=== PATIENT | female | born 1970 | race Caucasian/White ===

== ENCOUNTER 2017-04-10 10:18 | Emergency (ER) | payer BC ==
[2017-04-10 10:32] VITALS: BP 129/78
[2017-04-10] MEDS ORDERED: Acetaminophen/oxyCODONE 325-5 MG Tab PO PRN (10:46)
[2017-04-10] MEDS ORDERED: Ibuprofen 800 MG Tab PO PRN (10:46)
--- NOTE | 2017-04-10 12:28 | EDM.PDOC ---
ED HPI GENERAL MEDICAL PROBLEM - General Chief Complaint: Lower Extremity Injury/Pain Stated Complaint: RIGHT FOOT STEPPED ON BY HORSE Time Seen by Provider: 04/10/17 10:47 Source of Information: Reports: Patient History Limitations: Reports: No Limitations - History of Present Illness INITIAL COMMENTS - FREE TEXT/NARRATIVE: The patient is a 46-year-old female with a chief complaint of right foot pain. Yesterday her right foot was stepped on by a horse. The patient was wearing a boot. She states that she had immediate pain but was able to continue walking using the heel of her foot so did not seek medical attention. Today the pain, bruising, and swelling are a bit worse so she came in for evaluation. She has pain in the right foot in the midfoot area. Worse with ambulation. Better with rest. Pain is moderate. Took ibuprofen with little relief. No ankle pain or additional leg pain. No additional injury. She also states she's been feeling fatigued lately and slightly short of breath. She has a history of Crohn's disease and has chronic anemia for which she gets iron infusions. She had an iron infusion a few weeks ago. She is concerned that the symptoms are how she feels when she is anemic. Has follow-up for this in [facility] but not for 2 weeks from now. Right Feet Pain Score (Numeric/FACES): 6 - Related Data Allergies Allergy/AdvReac Type Severity Reaction Status Date / Time Iodinated Contrast- Oral and Allergy Hives Verified 04/10/17 10:32 IV Dye [Iodinated Contrast Media - IV Dye] iron dextran complex Allergy Anaphylactic Verified 04/10/17 10:32 Shock Sulfa (Sulfonamide Allergy Hives Verified 04/10/17 10:32 Antibiotics) Home Meds: Home Meds Adalimumab [Humira] 20 mg SQ DAILY 05/16/14 [History] ALPRAZolam [Alprazolam] 0.5 mg PO Q4HR PRN 04/10/17 [History] Ibuprofen 800 mg PO TID PRN #30 tablet 04/10/17 [Rx] Losartan [Cozaar] 50 mg PO DAILY 04/10/17 [History] Sertraline [Zoloft] 25 mg PO DAILY 04/10/17 [History] oxyCODONE 5 mg PO Q6H PRN #10 tablet 04/10/17 [Rx] Past Medical History Gastrointestinal History: Reports: Bowel Obstruction, Inflammatory Bowel Disease , Other (See Below) Other Gastrointestinal History: Chrone's disease Psychiatric History: Reports: Anxiety Hematologic History: Reports: Anemia, Iron Deficiency - Past Surgical History GI Surgical History: Reports: Small Bowel Female Surgical History: Reports: Hysterectomy Other Female Surgeries/Procedures: Partial hysterectomy Social & Family History - Family History Family Medical History: Noncontributory - Tobacco Use Smoking Status *Q: Never Smoker Second Hand Smoke Exposure: No - Alcohol Use Days Per Week of Alcohol Use: 0 - Recreational Drug Use Recreational Drug Use: No Review of Systems - Review of Systems Review Of Systems: See Below Constitutional: Reports: Weakness Eyes: Reports: No Symptoms Respiratory: Reports: Shortness of Breath Cardiovascular: Reports: No Symptoms GI/Abdominal: Reports: No Symptoms Musculoskeletal: Reports: Foot Pain ED EXAM, GENERAL - Physical Exam Exam: See Below Exam Limited By: No Limitations General Appearance: Alert, WD/WN, No Apparent Distress Eye Exam: Bilateral Eye: Normal Inspection Ears: Normal External Exam Nose: Normal Inspection Throat/Mouth: Normal Inspection, Normal Voice, No Airway Compromise Head: Atraumatic, Normocephalic Neck: Normal Inspection, Supple Respiratory/Chest: No Respiratory Distress Cardiovascular: Normal Peripheral Pulses Extremities: Other (Right lower extremity: Moderate swelling, tenderness, and ecchymosis of the entire right lateral midfoot area an area of second through fifth metatarsals on the dorsal surface. No crepitus. Toes appear uninjured. Skin intact. Foot warm and well perfused. No ankle swelling or point tenderness , full range of motion of the ankle. No additional extremity abnormality.) Neurological: Alert, Oriented, Normal Cognition Psychiatric: Normal Affect, Normal Mood Skin Exam: Warm, Dry, Intact, Normal Color, No Rash Course - Vital Signs Last Recorded V/S: Last Vital Signs Temp 36.7 C 04/10/17 10:26 Pulse 81 04/10/17 10:26 Resp 16 04/10/17 10:26 BP 129/78 04/10/17 10:26 Pulse Ox 93 L 04/10/17 10:26 - Orders/Labs/Meds Orders: Active Orders 24 hr Category Date Time Status Ankle 2V Rt [CR] Stat Exams 04/10/17 10:45 Ordered Foot 2V Rt [CR] Stat Exams 04/10/17 10:45 Ordered Acetaminophen/oxyCODONE [Percocet 325-5 MG] Med 04/10/17 10:46 Active 1 tab PO ONETIME PRN Ibuprofen [Motrin] Med 04/10/17 10:46 Active 800 mg PO ONETIME PRN Medication Orders Ibuprofen (Motrin) 800 mg PO ONETIME PRN PRN Reason: Pain Oxycodone/Acetaminophen (Percocet 325-5 Mg) 1 tab PO ONETIME PRN PRN Reason: Pain Last Admin: 04/10/17 10:50 Dose: 1 tab Labs: Laboratory Tests 04/10/17 Range/Units 10:52 Hgb 11.4 (11.2-15.7) gm/L Hct 35.6 (34.1-44.9) % Meds: Medications Generic Name Dose Route Start Last Admin Trade Name Freq PRN Reason Stop Dose Admin Ibuprofen 800 mg 04/10/17 10:46 Motrin PO ONETIME PRN Pain Oxycodone/Acetaminophen 1 tab 04/10/17 10:46 04/10/17 10:50 Percocet 325-5 Mg PO 1 tab ONETIME PRN Administration Pain - Re-Assessments/Exams Free Text/Narrative Re-Assessment/Exam: 04/10/17 12:32 X-rays of the right foot and ankle show no definite fracture. However she does have significant swelling and tenderness of the right foot metacarpal so we will place her in a hard soled shoe and provide crutches. I advised her to remain nonweightbearing until she follows up with orthopedics in case of an occult fracture. Meanwhile, her hemoglobin is okay. Discussed this result with her and advised her to follow up with her primary care physician for further workup for her fatigue. She is well appearing and does not endorse constitutional symptoms that would further provoke an emergency workup today. Departure - Departure Time of Disposition: 12:25 Disposition: Home, Self-Care 01 Clinical Impression: Contusion of foot, right Qualifiers: Encounter type: initial encounter Qualified Code(s): S90.31XA - Contusion of right foot, initial encounter - Discharge Information Prescriptions: Ibuprofen 800 mg PO TID PRN #30 tablet PRN Reason: Pain oxyCODONE 5 mg PO Q6H PRN #10 tablet PRN Reason: Pain Referrals: Gail Childs PA-C [Primary Care Provider] - Forms: ED Department Discharge Additional Instructions: 1. Take ibuprofen as prescribed for pain 2. You may take acetaminophen (Tylenol) as needed in addition to ibuprofen. These medications work and are cleared by the body in different ways so it is safe to take both. 3. Take oxycodone only as needed for severe pain 4. Use crutches/hard soled shoe until cleared by orthopedics. Follow up with orthopedics in approximately one week. You may call the provider of your choice tomorrow to schedule. 5. Return to the ED as needed for any new or concerning symptoms - My Orders Last 24 Hours: My Active Orders 04/10/17 10:45 Ankle 2V Rt [CR] Stat Foot 2V Rt [CR] Stat 04/10/17 10:46 Acetaminophen/oxyCODONE [Percocet 325-5 MG] 1 tab PO ONETIME PRN Ibuprofen [Motrin] 800 mg PO ONETIME PRN - Assessment/Plan Last 24 Hours: My Active Orders 04/10/17 10:45 Ankle 2V Rt [CR] Stat Foot 2V Rt [CR] Stat 04/10/17 10:46 Acetaminophen/oxyCODONE [Percocet 325-5 MG] 1 tab PO ONETIME PRN Ibuprofen [Motrin] 800 mg PO ONETIME PRN
--- NOTE | 2017-04-11 10:11 | CR ---
Right foot: Four views of the right foot were obtained. Comparison: No previous foot study. Plantar spur is seen. Mild soft tissue swelling is noted. Joint spaces are preserved. No acute fracture or other abnormality is appreciated. Impression: 1. Plantar spur. Soft tissue swelling. 2. No additional abnormality is identified on right foot study. Diagnostic code #2
--- NOTE | 2017-04-11 10:11 | CR ---
Right ankle: Three views of the right ankle were obtained. Comparison: No previous right ankle study. Ankle mortise is symmetric. Plantar spur again is noted. No acute fracture or other bony abnormality is seen. Impression: 1. Plantar spur. 2. No acute bony abnormality is identified on right ankle study. Diagnostic code #2
== END 2017-04-10 12:40 | disposition home or self-care (01) ==
LOC: JD.ED 10:18
DX: S90.31XA Contusion of right foot, initial encounter (principal); F41.9 Anxiety disorder, unspecified; Z88.2 Allergy status to sulfonamides; Z91.041 Radiographic dye allergy status; Z79.899 Other long term (current) drug therapy; Z90.710 Acquired absence of both cervix and uterus; W55.19XA Other contact with horse, initial encounter
CPT/HCPCS: 36415; 73600; 73620; 85014; 85018; 99284; A9270; 99283

== ENCOUNTER 2017-04-13 18:40 | Emergency (ER) | payer BC ==
[2017-04-13 19:28] VITALS: BP 172/88
--- NOTE | 2017-04-13 19:42 | EDM.PDOC ---
ED HPI GENERAL MEDICAL PROBLEM - General Chief Complaint: Lower Extremity Injury/Pain Stated Complaint: RIGHT CALF PAIN Time Seen by Provider: 04/13/17 19:28 Source of Information: Reports: Patient History Limitations: Reports: No Limitations - History of Present Illness INITIAL COMMENTS - FREE TEXT/NARRATIVE: The patient presents with right calf pain that started today. On Tuesday her right foot was stepped on by a horse and she was seen here. An x-ray of her ankle and foot were done and there was no x-ray. She was given a stiff soled shoe and crutches. Today she developed pain in her right lower leg. She has no chest pain but she does have shortness of breath. She has a history of anemia and she gets iron transfusions. She is scheduled to see her oncologist next Tuesday. She has no history of DVTs or PEs. Onset: Sudden Duration: Hour(s): Location: Reports: Lower Extremity, Right (calf) Quality: Reports: Ache Severity: Moderate Improves with: Reports: None Worsens with: Reports: None Associated Symptoms: Reports: Shortness of Breath. Denies: Chest Pain Right Lower Leg Pain Score (Numeric/FACES): 6 - Related Data Allergies Allergy/AdvReac Type Severity Reaction Status Date / Time Iodinated Contrast- Oral and Allergy Hives Verified 04/13/17 19:24 IV Dye [Iodinated Contrast Media - IV Dye] iron dextran complex Allergy Anaphylactic Verified 04/13/17 19:24 Shock Sulfa (Sulfonamide Allergy Hives Verified 04/13/17 19:24 Antibiotics) Home Meds: Home Meds Adalimumab [Humira] 20 mg SQ DAILY 05/16/14 [History] ALPRAZolam [Alprazolam] 0.5 mg PO Q4HR PRN 04/10/17 [History] Ibuprofen 800 mg PO TID PRN #30 tablet 04/10/17 [Rx] Losartan [Cozaar] 50 mg PO DAILY 04/10/17 [History] Sertraline [Zoloft] 25 mg PO DAILY 04/10/17 [History] oxyCODONE 5 mg PO Q6H PRN #10 tablet 04/10/17 [Rx] Past Medical History Gastrointestinal History: Reports: Bowel Obstruction, Inflammatory Bowel Disease , Other (See Below) Other Gastrointestinal History: Chrone's disease Psychiatric History: Reports: Anxiety Hematologic History: Reports: Anemia, Iron Deficiency - Past Surgical History GI Surgical History: Reports: Small Bowel Female Surgical History: Reports: Hysterectomy Other Female Surgeries/Procedures: Partial hysterectomy Musculoskeletal Surgical History: Reports: Other (See Below) Other Musculoskeletal Surgeries/Procedures:: Herniated disc Social & Family History - Family History Family Medical History: Noncontributory - Tobacco Use Smoking Status *Q: Never Smoker Second Hand Smoke Exposure: No - Alcohol Use Days Per Week of Alcohol Use: 2 Number of Drinks Per Day: 2 Total Drinks Per Week: 4 - Recreational Drug Use Recreational Drug Use: No Review of Systems - Review of Systems Review Of Systems: See Below Constitutional: Reports: No Symptoms Eyes: Reports: No Symptoms Ears: Reports: No Symptoms Nose: Reports: No Symptoms Mouth/Throat: Reports: No Symptoms Respiratory: Reports: Shortness of Breath. Denies: Cough Cardiovascular: Reports: No Symptoms GI/Abdominal: Reports: No Symptoms Genitourinary: Reports: No Symptoms Musculoskeletal: Reports: Other (Right calf pain) ED EXAM, GENERAL - Physical Exam Exam: See Below Exam Limited By: No Limitations General Appearance: Alert, No Apparent Distress Ears: Normal External Exam Nose: Normal Inspection Head: Atraumatic, Normocephalic Neck: Normal Inspection Respiratory/Chest: No Respiratory Distress, Lungs Clear, Normal Breath Sounds Cardiovascular: Regular Rate, Rhythm, No Edema, No Murmur GI/Abdominal: Soft, Non-Tender, No Organomegaly Extremities: Other (Ecchymosis and edema to the right foot. Mild pain upon palpation to the right calf. Her right calf measures 39.5cm and her left calf measures 39cm.) Course - Vital Signs Last Recorded V/S: Last Vital Signs Temp 97.2 F 04/13/17 19:25 Pulse 77 04/13/17 19:25 Resp 16 04/13/17 19:25 BP 172/88 H 04/13/17 19:25 Pulse Ox 100 04/13/17 19:25 - Orders/Labs/Meds Orders: Active Orders 24 hr Category Date Time Status VL Duplex Lwr Ext Veins Ltd Rt [US] Stat Exams 04/13/17 19:36 Taken - Re-Assessments/Exams Free Text/Narrative Re-Assessment/Exam: 04/13/17 19:45 I ordered an US of her right leg to look for DVT. 04/13/17 20:54 The US was negative for DVT. I will discharge her home. Departure - Departure Time of Disposition: 20:55 Disposition: Home, Self-Care 01 Condition: Good Clinical Impression: Right calf pain - Discharge Information Referrals: Gail Childs PA-C [Primary Care Provider] - Forms: ED Department Discharge Additional Instructions: Continue with the tylenol or motrin for pain. Follow up with your doctors as scheduled. Please return if you have any more problems. - My Orders Last 24 Hours: My Active Orders 04/13/17 19:36 VL Duplex Lwr Ext Veins Ltd Rt [US] Stat - Assessment/Plan Last 24 Hours: My Active Orders 04/13/17 19:36 VL Duplex Lwr Ext Veins Ltd Rt [US] Stat
--- NOTE | 2017-04-13 21:05 | US ---
Right lower extremity deep venous ultrasound: Duplex and color flow imaging was obtained of the right common femoral, proximal greater saphenous, superficial femoral, popliteal, posterior tibial and peroneal veins. Left common femoral vein was also evaluated. Findings: Normal phasic flow, augmentation and compression is seen. 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 Impression: 1. No evidence of deep venous thrombosis within the right lower extremity or within the left common femoral vein. Diagnostic code #1
== END 2017-04-13 21:14 | disposition home or self-care (01) ==
LOC: JD.ED 18:40
DX: S90.31XA Contusion of right foot, initial encounter (principal); F41.9 Anxiety disorder, unspecified; Z86.2 Personal history of diseases of the blood and blood-forming organs and certain disorders involving the immune mechanism; Z90.711 Acquired absence of uterus with remaining cervical stump; Z98.890 Other specified postprocedural states; Z79.899 Other long term (current) drug therapy; Z91.041 Radiographic dye allergy status; Z88.2 Allergy status to sulfonamides; W55.12XA Struck by horse, initial encounter
CPT/HCPCS: 93971-26-RT; 93971-RT; 99282; 99283-25

== ENCOUNTER 2017-09-04 14:23 | Emergency (ER) | payer BC ==
[2017-09-04 14:36] VITALS: BP 147/93
[2017-09-04] MEDS ORDERED: HYDROmorphone 0.5 MG/0.5 ML Syringe IVPUSH ONE ×2 (14:53→16:54)
[2017-09-04] MEDS ORDERED: Ketorolac 30 MG/ML SDV IVPUSH ONE (14:53)
[2017-09-04] MEDS ORDERED: cefTRIAXone 2 GM in Sodium Chloride 0.9% 100 ML IV ONE (14:53)
[2017-09-04] MEDS ORDERED: Sodium Chloride 0.9% 10 ML Syringe FLUSH PRN (14:53)
--- NOTE | 2017-09-04 14:57 | EDM.PDOC ---
ED HPI GENERAL MEDICAL PROBLEM - General Chief Complaint: Skin Complaint Stated Complaint: SWELLING UNDER LEFT EYE Time Seen by Provider: 09/04/17 14:36 Source of Information: Reports: Patient History Limitations: Reports: No Limitations - History of Present Illness INITIAL COMMENTS - FREE TEXT/NARRATIVE: 46 year old female presents for evaluation and treatment of pain, erythema and swelling to the inferior left eye. Patient reports she first developed a pimple to the left lateral zygomatic process on Tuesday or this week. She reports the area has steadily worsened. She now has significant pain, erythema and swelling to the left zygomatic process and extends to the inferior eye. She reports a severe, constant, throbbing pain. She reports there is an open area that is draining fluid and pus surrounded by a tender, hard area. She reports associated headaches, left ear pain, left sided sinus pressure and pain with EOMs. She denies any fevers, nausea or vomiting. She took an oxycodone earlier today with little symptom relief She is not a diabetic. No history of MRSA. Location: Reports: Face Left Face Pain Score (Numeric/FACES): 10 - Related Data Allergies Allergy/AdvReac Type Severity Reaction Status Date / Time Iodinated Contrast- Oral and Allergy Hives Verified 09/04/17 14:31 IV Dye [Iodinated Contrast Media - IV Dye] iron dextran complex Allergy Anaphylactic Verified 09/04/17 14:31 Shock Sulfa (Sulfonamide Allergy Hives Verified 09/04/17 14:31 Antibiotics) Home Meds: Home Meds Adalimumab [Humira] 40 mg SQ ASDIRECTED 05/16/14 [History] ALPRAZolam [Alprazolam] 0.5 mg PO Q4HR PRN 04/10/17 [History] Ibuprofen 800 mg PO TID PRN #30 tablet 04/10/17 [Rx] Losartan [Cozaar] 50 mg PO DAILY 04/10/17 [History] Sertraline [Zoloft] 25 mg PO DAILY 04/10/17 [History] oxyCODONE 5 mg PO Q6H PRN #10 tablet 04/10/17 [Rx] Hydrocodone/Acetaminophen [Hydrocodon-Acetaminophen 5-325] 1 tab PO Q6H PRN [History] Past Medical History Gastrointestinal History: Reports: Bowel Obstruction, Inflammatory Bowel Disease , Other (See Below) Other Gastrointestinal History: Chrone's disease Psychiatric History: Reports: Anxiety Hematologic History: Reports: Anemia, Iron Deficiency - Past Surgical History GI Surgical History: Reports: Small Bowel Female Surgical History: Reports: Hysterectomy Other Female Surgeries/Procedures: Partial hysterectomy Musculoskeletal Surgical History: Reports: Other (See Below) Other Musculoskeletal Surgeries/Procedures:: Herniated disc Social & Family History - Family History Family Medical History: Noncontributory - Tobacco Use Smoking Status *Q: Never Smoker Second Hand Smoke Exposure: No - Alcohol Use Days Per Week of Alcohol Use: 2 Number of Drinks Per Day: 2 Total Drinks Per Week: 4 - Recreational Drug Use Recreational Drug Use: No ED ROS GENERAL - Review of Systems Review Of Systems: See Below Constitutional: Denies: Fever HEENT: Reports: Ear Pain (right), Sinus Problem (left side), Other (swelling, erythema and pain to the left lateral zygomatic process extending to the lower left eye) GI/Abdominal: Denies: Nausea, Vomiting Skin: Reports: Erythema (swollen, erythematous, tender area to the left cheek and below the left eye ), Wound (draining pustle) Neurological: Reports: Headache ED EXAM, SKIN/RASH Exam: See Below Exam Limited By: No Limitations General Appearance: Alert, WD/WN, No Apparent Distress Eye Exam: Left Eye: Periorbital Changes (inferior left eye erythema and swelling ), Bilateral Eye: EOMI (reports pain with EOM testing; greatest pain to the left eye wiht left lateral gaze), Normal Inspection, PERRL Ears: Normal External Exam, Normal Canal, Hearing Grossly Normal, Normal TMs Nose: Normal Inspection Throat/Mouth: Normal Inspection, Normal Lips, Normal Voice, No Airway Compromise Head: Sinus Tenderness (left maxillary sinuses) Neck: Normal Inspection Respiratory/Chest: No Respiratory Distress, Lungs Clear, Normal Breath Sounds Cardiovascular: Normal Peripheral Pulses, Regular Rate, Rhythm, No Murmur Neurological: Alert, Oriented, Normal Cognition Psychiatric: Normal Affect, Normal Mood Skin: Warm, Dry, Erythema, Increased Warmth, Wound/Incision (approximately 1cm in diameter open area draining serous fluid surrounded by a golf ball sized indurated area; swelling and erythema appreciated to the left zygomatic process to the left inferior orbit) Location, Skin: Face Characteristics: Erythematous. No: Necrotic Associated features: Warmth, Tenderness, Swelling, Induration, Inflammation, Weeping Course - Vital Signs Last Recorded V/S: Last Vital Signs Temp 36.6 C 09/04/17 14:33 Pulse 80 09/04/17 14:33 Resp BP 147/93 H 09/04/17 14:33 Pulse Ox 97 09/04/17 14:33 - Orders/Labs/Meds Labs: Laboratory Tests 09/04/17 09/04/17 Range/Units 15:20 15:20 WBC 8.10 (3.98-10.04) K/mm3 RBC 4.61 (3.98-5.22) M/mm3 Hgb 11.7 (11.2-15.7) gm/L Hct 36.8 (34.1-44.9) % MCV 79.8 (79.4-94.8) fl MCH 25.4 L (25.6-32.2) pg MCHC 31.8 L (32.2-35.5) g/dl RDW Std Deviation 46.3 (36.4-46.3) fL Plt Count 393 H (182-369) K/mm3 MPV 8.2 L (9.4-12.3) fl Neut % (Auto) 68.2 (34.0-71.1) % Lymph % (Auto) 17.4 L (19.3-51.7) % Cedar % (Auto) 9.8 (4.7-12.5) % Eos % (Auto) 4.3 (0.7-5.8) Baso % (Auto) 0.1 (0.1-1.2) % Neut # (Auto) 5.52 (1.56-6.13) K/mm3 Lymph # (Auto) 1.41 (1.18-3.74) K/mm3 Cedar # (Auto) 0.79 H (0.24-0.36) K/mm3 Eos # (Auto) 0.35 (0.04-0.36) K/mm3 Baso # (Auto) 0.01 (0.01-0.08) K/mm3 C-Reactive Protein 1.7 H* (<1.0) mg/dL Meds: Medications Discontinued Medications Generic Name Dose Route Start Last Admin Trade Name Freq PRN Reason Stop Dose Admin Doxycycline Hyclate 100 mg 09/04/17 16:54 09/04/17 17:05 Vibramycin PO 09/04/17 16:55 100 mg ONETIME ONE Administration Hydromorphone HCl 0.5 mg 09/04/17 14:53 09/04/17 15:26 Dilaudid IVPUSH 09/04/17 14:54 0.5 mg ONETIME ONE Administration Hydromorphone HCl 0.5 mg 09/04/17 16:54 09/04/17 17:04 Dilaudid IVPUSH 09/04/17 16:55 0.5 mg ONETIME ONE Administration Ceftriaxone Sodium 2 gm/ 100 mls @ 200 mls/hr 09/04/17 14:53 09/04/17 15:31 Sodium Chloride IV 09/04/17 15:22 200 mls/hr ONETIME ONE Administration Ketorolac Tromethamine 30 mg 09/04/17 14:53 09/04/17 15:28 Toradol IVPUSH 09/04/17 14:54 30 mg ONETIME ONE Administration Sodium Chloride 10 ml 09/04/17 14:53 09/04/17 15:32 Saline Flush FLUSH 10 ml ASDIRECTED PRN Administration Keep Vein Open - Radiology Interpretation Free Text/Narrative:: CT of the facial bones without contrast (no contrast given due to allergy) impression per [facility]: 1. left facial and periorbital soft tissue swelling. 2. No acute osseous abnormality. - Re-Assessments/Exams Free Text/Narrative Re-Assessment/Exam: 09/04/17 16:56 Given the periorbital changes, pain with EOM and headaches, the decision was made to CT to rule out an orbital cellulitis. Unfortunately allergy to contrast limited the study. I reviewed the labs and CT results patient. She is complaining of the pain is coming back. Additional 0.5 mg IV Dilaudid ordered. I'll give her doxycycline here in the ER tonight. She has received rocephin IV. Prescriptions for doxycycline and Percocet given. Discharge instructions as documented. Departure - Departure Time of Disposition: 16:57 Disposition: Home, Self-Care 01 Condition: Fair Clinical Impression: Cellulitis - Discharge Information Instructions: Cellulitis, Adult, [id number] Referrals: Gail Childs PA-C [Primary Care Provider] - Forms: ED Department Discharge Additional Instructions: Prescription for doxycycline 1 tab twice a day for 10 days Perception for Percocet 1-2 tabs every 6 hours as needed for pain. prescriptions given through [facility] you were given medication in the ER that can affect your ability to drive and operate machinery. Do not drive or operate machinery within 12 hours of taking perception narcotic pain medication. take the doxycycline as prescribed. 1 tab twice a day. may start a prescription tomorrow as your first dose was gien here in the ER tonight. Ibuprofen 600 mg every 6 hours. This will help with the pain and the inflammation. For pain not relieved by ibuprofen may take Percocet 1-2 tabs every 6 hours as needed for pain. Percocet can be habit-forming, I recommend you take as few of these as needed to control your pain. Do not drive or operate machinery within 12 hours of taking Percocet. Follow up with Gail Childs in 7-10 days for recheck of your symptoms. Notify your GI doctor that you are on antibiotics for cellulitis to see if this will interfere with your colonoscopy. Warm compresses to the area 4-6 times a day for 10-15 minutes. Please return to the ER if your symptoms change or worsen.
[2017-09-04] MEDS ORDERED: Doxycycline 100 MG Cap PO ONE (16:54)
--- NOTE | 2017-09-06 11:01 | CT ---
CT maxillofacial Technique: Multiple axial sections were obtained from below the mandible superiorly through the sinuses. Intravenous contrast was not utilized. Reconstructed coronal and sagittal images were obtained. Comparison: No prior facial study. Findings: Mild edema or soft tissue swelling is seen within the left cheek and left periorbital region. Right and left globes are symmetric. No adenopathy is seen. Sinuses are clear. No air-fluid levels are seen within the sinuses. No acute bony abnormality is identified. Impression: 1. Mild edema or soft tissue swelling within the left cheek and left periorbital region. 2. No additional abnormality seen on CT study of the maxillofacial region. Diagnostic code #2 I agree with preliminary report issued by [facility] ([facility] report finalized on 09/04/17, 50 3 PM Central Time)
== END 2017-09-04 17:35 | disposition home or self-care (01) ==
LOC: JD.ED 14:23
DX: H05.012 Cellulitis of left orbit (principal); Z88.8 Allergy status to other drugs, medicaments and biological substances; Z88.2 Allergy status to sulfonamides; Z91.041 Radiographic dye allergy status; Z79.899 Other long term (current) drug therapy
CPT/HCPCS: 36415; 70486; 85025; 86140; 96365; 96375; 96376; 99284; A9270; J0696; J1170; J1885; J7030; J7050

== ENCOUNTER 2019-01-27 23:14 | Emergency (ER) | payer OTHER ==
[2019-01-27 23:35] VITALS: BP 143/90
[2019-01-27] MEDS ORDERED: Sodium Chloride 0.9% 1,000 ML IV SCH (23:45)
[2019-01-27] MEDS ORDERED: HYDROmorphone 1 MG/ML Syringe IVPUSH ONE (23:52)
[2019-01-27] MEDS ORDERED: Ondansetron 4 MG/2 ML SDV IVPUSH ONE (23:52)
--- NOTE | 2019-01-27 23:56 | EDM.PDOC ---
ED HPI GENERAL MEDICAL PROBLEM - General Chief Complaint: Abdominal Pain Stated Complaint: ABDOMINAL PAIN Time Seen by Provider: 01/27/19 23:24 Source of Information: Reports: Patient History Limitations: Reports: No Limitations - History of Present Illness INITIAL COMMENTS - FREE TEXT/NARRATIVE: This is a 48-year-old female. April 2018 she had most of her colon removed other than 5 inches that is not connected to anything now due to Crohn' s disease. She has an ostomy that is connected directly to the small bowel. She states this morning she awoke with some mild symptoms of abdominal discomfort and maybe the feeling of some distention but she drank some tea and fluids and it seemed to get better and then she ate this evening around 10 PM she started having increasing symptoms of abdominal pain some vomiting and she feels like she is becoming distended. She was having output from her ostomy all day today and was pretty normal and that when she emptied it around 10:00 this night she' s had no more output. She has not been around anybody else who has been sick with nausea and vomiting or abdominal pain. She does have a history in the past small bowel obstructions. She states she has been chilling since the symptoms started. No problems with urination. Abdomen Pain Score (Numeric/FACES): 10 - Related Data Allergies Allergy/AdvReac Type Severity Reaction Status Date / Time Iodinated Contrast- Oral and Allergy Hives Verified 01/27/19 23:35 IV Dye [Iodinated Contrast Media - IV Dye] iron dextran complex Allergy Anaphylactic Verified 01/27/19 23:35 Shock Sulfa (Sulfonamide Allergy Hives Verified 01/27/19 23:35 Antibiotics) Home Meds: Home Meds Adalimumab [Humira] 40 mg SQ ASDIRECTED 05/16/14 [History] ALPRAZolam [Alprazolam] 0.5 mg PO Q4HR PRN 04/10/17 [History] Ibuprofen 800 mg PO TID PRN #30 tablet 04/10/17 [Rx] Losartan [Cozaar] 50 mg PO DAILY 04/10/17 [History] Sertraline [Zoloft] 25 mg PO DAILY 04/10/17 [History] oxyCODONE 5 mg PO Q6H PRN #10 tablet 04/10/17 [Rx] Hydrocodone/Acetaminophen [Hydrocodon-Acetaminophen 5-325] 1 tab PO Q6H PRN [History] Past Medical History Gastrointestinal History: Reports: Bowel Obstruction, Inflammatory Bowel Disease , Other (See Below) Other Gastrointestinal History: Chrone's disease Psychiatric History: Reports: Anxiety Hematologic History: Reports: Anemia, Iron Deficiency - Past Surgical History GI Surgical History: Reports: Appendectomy, Small Bowel, Other (See Below) Other GI Surgeries/Procedures: ileostomy Female Surgical History: Reports: Hysterectomy Other Female Surgeries/Procedures: Partial hysterectomy Musculoskeletal Surgical History: Reports: Other (See Below) Other Musculoskeletal Surgeries/Procedures:: Herniated disc Social & Family History - Family History Family Medical History: Noncontributory - Tobacco Use Smoking Status *Q: Never Smoker Second Hand Smoke Exposure: No - Caffeine Use Caffeine Use: Reports: None - Recreational Drug Use Recreational Drug Use: No ED ROS GENERAL - Review of Systems Review Of Systems: See Below Constitutional: Reports: Chills. Denies: Fever HEENT: Reports: No Symptoms Respiratory: Reports: No Symptoms Cardiovascular: Reports: No Symptoms Endocrine: Reports: No Symptoms GI/Abdominal: Reports: Abdominal Pain, Nausea, Vomiting. Denies: Constipation, Diarrhea : Reports: No Symptoms Musculoskeletal: Reports: No Symptoms Skin: Reports: No Symptoms Neurological: Reports: No Symptoms Psychiatric: Reports: No Symptoms Hematologic/Lymphatic: Reports: No Symptoms ED EXAM, GI/ABD - Physical Exam Exam: See Below Exam Limited By: No Limitations General Appearance: Alert, WD/WN, No Apparent Distress Eyes: Bilateral: Normal Appearance Ears: Normal External Exam Nose: Normal Inspection Throat/Mouth: Normal Inspection, Normal Lips, Normal Voice, No Airway Compromise Head: Normocephalic Neck: Supple Respiratory/Chest: No Respiratory Distress, Lungs Clear, Normal Breath Sounds Cardiovascular: Regular Rate, Rhythm, No Murmur GI/Abdominal Exam: Soft, Other (She has generalized soreness on palpation of her abdomen, I do not see obvious distention of her abdomen, bowel sounds are quiet, the ostomy site appears to be clean without infection in the ostomy bag is empty) Back Exam: Full Range of Motion Extremities: Normal Inspection, Normal Range of Motion Neurological: Alert, Oriented Psychiatric: Normal Affect, Normal Mood Skin Exam: Warm, Dry Course - Vital Signs Last Recorded V/S: Last Vital Signs Temp 97.9 F 01/27/19 23:32 Pulse 88 01/27/19 23:32 Resp 16 01/27/19 23:32 BP 143/90 H 01/27/19 23:32 Pulse Ox 96 01/27/19 23:32 - Orders/Labs/Meds Orders: Active Orders 24 hr Category Date Time Status Abdomen Pelvis wo Cont [CT] Stat Exams 01/27/19 23:59 Taken Sodium Chloride 0.9% [Normal Saline] 1,000 ml Med 01/27/19 23:45 Active IV ASDIRECTED Medication Orders Sodium Chloride (Normal Saline) 1,000 mls @ 1,000 mls/hr IV ASDIRECTED ROXANNA Last Admin: 01/28/19 00:02 Dose: 1,000 mls/hr Labs: Laboratory Tests 01/28/19 01/28/19 Range/Units 00:00 00:00 WBC 9.43 (3.98-10.04) K/mm3 RBC 5.05 (3.98-5.22) M/mm3 Hgb 15.0 (11.2-15.7) gm/L Hct 43.2 (34.1-44.9) % MCV 85.5 (79.4-94.8) fl MCH 29.7 (25.6-32.2) pg MCHC 34.7 (32.2-35.5) g/dl RDW Std Deviation 42.0 (36.4-46.3) fL Plt Count 230 (182-369) K/mm3 MPV 8.6 L (9.4-12.3) fl Neut % (Auto) 73.4 H (34.0-71.1) % Lymph % (Auto) 17.1 L (19.3-51.7) % [place] % (Auto) 7.2 (4.7-12.5) % Eos % (Auto) 2.0 (0.7-5.8) Baso % (Auto) 0.1 (0.1-1.2) % Neut # (Auto) 6.92 H (1.56-6.13) K/mm3 Lymph # (Auto) 1.61 (1.18-3.74) K/mm3 [place] # (Auto) 0.68 H (0.24-0.36) K/mm3 Eos # (Auto) 0.19 (0.04-0.36) K/mm3 Baso # (Auto) 0.01 (0.01-0.08) K/mm3 Sodium 140 (136-145) mEq/L Potassium 3.5 (3.5-5.1) mEq/L Chloride 102 (98-107) mEq/L Carbon Dioxide 26 (21-32) mEq/L Anion Gap 15.5 H (5-15) BUN 19 H (7-18) mg/dL Creatinine 0.9 (0.55-1.02) mg/dL Est Cr Clr Drug Dosing 71.56 mL/min Estimated GFR (MDRD) > 60 (>60) mL/min BUN/Creatinine Ratio 21.1 H (14-18) Glucose 107 H (74-106) mg/dL Calcium 8.9 (8.5-10.1) mg/dL Total Bilirubin 0.7 (0.2-1.0) mg/dL AST 41 H (15-37) U/L ALT 79 H (14-59) U/L Alkaline Phosphatase 112 (46-116) U/L Total Protein 7.7 (6.4-8.2) g/dl Albumin 3.7 (3.4-5.0) g/dl Globulin 4.0 gm/dL Albumin/Globulin Ratio 0.9 L (1-2) Lipase 538 H (73-393) U/L Meds: Medications Generic Name Dose Route Start Last Admin Trade Name Freq PRN Reason Stop Dose Admin Sodium Chloride 1,000 mls @ 1,000 mls/hr 01/27/19 23:45 01/28/19 00:02 Normal Saline IV 1,000 mls/hr ASDIRECTED ROXANNA Administration Discontinued Medications Generic Name Dose Route Start Last Admin Trade Name Freq PRN Reason Stop Dose Admin Hydromorphone HCl 0.5 mg 01/27/19 23:52 01/28/19 00:04 Dilaudid IVPUSH 01/27/19 23:53 0.5 mg ONETIME ONE Administration Hydromorphone HCl 0.5 mg 01/28/19 00:59 01/28/19 01:02 Dilaudid IVPUSH 01/28/19 01:00 0.5 mg ONETIME ONE Administration Ondansetron HCl 4 mg 01/27/19 23:52 01/28/19 00:03 Zofran IVPUSH 01/27/19 23:53 4 mg ONETIME ONE Administration - Radiology Interpretation Free Text/Narrative:: CT scan shows a gallbladder distention with multiple gallstones the pancreas showed no ductal dilatation however rest of the CT scan was essentially normal other than her previous postop changes. There was no bowel obstruction. - Re-Assessments/Exams Free Text/Narrative Re-Assessment/Exam: 01/28/19 01:38 I spoke to the patient regarding her CT scan results and the gallbladder distention and multiple gallstones with her slightly elevated liver enzymes and lipase. I indicated she would need to follow-up with her family doctor on Tuesday for referral to a surgeon to have her gallbladder removed. In the meantime she needs to stay on easy to digest foods with no oil grease or fried foods or meats. Patient states she understands. She knows that if the symptoms worsen she is to return to the ER. Departure - Departure Time of Disposition: 01:39 Disposition: Home, Self-Care 01 Condition: Fair Clinical Impression: Elevated liver enzymes, Elevated lipase Cholelithiasis Qualifiers: Cholelithiasis location: gallbladder Cholecystitis presence: without cholecystitis Biliary obstruction: without biliary obstruction Qualified Code(s) : K80.20 - Calculus of gallbladder without cholecystitis without obstruction - Discharge Information *PRESCRIPTION DRUG MONITORING PROGRAM REVIEWED*: No *COPY OF PRESCRIPTION DRUG MONITORING REPORT IN PATIENT JOHN: No Instructions: Cholelithiasis Referrals: Gail Childs PA-C [Primary Care Provider] - Forms: ED Department Discharge Additional Instructions: Stay on liquids and easy to digest foods with no oily, greasy or fried foods or meats, follow-up with your family doctor this coming week and call her on Tuesday for an appointment to be referred to a surgeon for gallbladder evaluation and possible removal, if your symptoms worsen with increasing pain, nausea and vomiting or fever greater than 101, return to the ER - My Orders Last 24 Hours: My Active Orders 01/27/19 23:45 Sodium Chloride 0.9% [Normal Saline] 1,000 ml IV ASDIRECTED 01/27/19 23:59 Abdomen Pelvis wo Cont [CT] Stat - Assessment/Plan Last 24 Hours: My Active Orders 01/27/19 23:45 Sodium Chloride 0.9% [Normal Saline] 1,000 ml IV ASDIRECTED 01/27/19 23:59 Abdomen Pelvis wo Cont [CT] Stat
[2019-01-28] MEDS ORDERED: HYDROmorphone 0.5 MG/0.5 ML Syringe IVPUSH ONE (00:59)
--- NOTE | 2019-01-28 11:15 | CT ---
CT abdomen and pelvis Technique: Multiple axial sections were obtained from above the dome of the diaphragm inferiorly through the pubic symphysis. Intravenous and oral contrast was not utilized. Comparison: Prior CT abdomen and pelvis exam of 12/26/15. Findings: Small portion of the visualized lung bases are clear. Noncontrast appearance of the liver and spleen appears within normal limits. Adrenal glands show no nodule. Gallbladder is somewhat distended and contains a small calcified gallstone. No gallbladder wall thickening is seen on this study. Adrenal glands show no nodule. Kidneys show no hydronephrosis. Cyst is noted within the upper left kidney containing peripheral calcifications which is stable from prior CT exam and therefore is incidental. Pancreas appears within normal limits. Aorta shows no aneurysm. No retroperitoneal adenopathy or mesenteric abnormalities are seen. Interval colectomy is noted. Ostomy is seen within the right lower abdomen. Small fluid collection is seen anterior to the sacrum measuring about 1.8 cm. This is most likely due to small and incidental hematoma/seroma from previous surgery. Bone window settings were reviewed which show disc space narrowing at L5-S1 with vacuum phenomena. Degenerative apophyseal change is seen within the L4-L5 and L5-S1 levels. Impression: 1. Dilated gallbladder containing small calcified gallstone. 2. Interval colectomy from prior study with ostomy noted within the right lower abdomen. 3. Small fluid collection anterior to the sacrum within the pelvis which is believed to represent incidental hematoma/seroma from previous surgery. 4. Other incidental findings. Nothing acute is identified. Diagnostic code #2 I agree with preliminary report from [facility], finalized on 01/28/19, 2:31 AM Central Time
== END 2019-01-28 01:58 | disposition home or self-care (01) ==
LOC: JD.ED 23:14
DX: K80.20 Calculus of gallbladder without cholecystitis without obstruction (principal); R74.8 Abnormal levels of other serum enzymes; R79.89 Other specified abnormal findings of blood chemistry; D50.9 Iron deficiency anemia, unspecified; Z91.041 Radiographic dye allergy status; Z79.899 Other long term (current) drug therapy
CPT/HCPCS: 36415; 74176; 80053; 83690; 85025; 96361; 96374; 96375; 96376; 99284; J1170; J2405; J7040

== ENCOUNTER 2019-01-31 08:40 | Day surgery (SDC) | payer OTHER ==
[~2019-01-31 08:40] MED LIST: Dexamethasone 4 MG/ML SDV ONE; Lidocaine 1%/Sod Bicarbonate in NS 8.4% 1 ML Syringe IDERM PRN; Midazolam 1 MG/ML 2 ML SDV ONE; Ondansetron 4 MG/2 ML SDV ONE; Propofol 200 MG/20 ML SDV ONE; Rocuronium 50 MG/5 ML Vial ONE; Sodium Chloride 0.9% 10 ML Syringe FLUSH PRN; fentaNYL 250 MCG/5 ML SDV ONE
[2019-01-31] MEDS: Lactated Ringers 1,000 ML IV SCH ×2 (09:00→13:39)
[2019-01-31] MEDS ORDERED: cefOXitin 2 GM in Premix Bag 1 BAG IV ONE (09:19)
--- NOTE | 2019-01-31 09:20 | PCM.PREANE ---
Preanesthetic Assessment - Anesthesia/Transfusion/Family Hx Anesthesia History: Prior Anesthesia Without Reaction Family History of Anesthesia Reaction: No Transfusion History: No Prior Transfusion(s) Intubation History: Unknown - Review of Systems General: No Symptoms, Fatigue Pulmonary: No Symptoms (ETOH: rarely), Cough Cardiovascular: No Symptoms (History of hypertension) Gastrointestinal: No Symptoms (History of Chrohns disease-history of colectomy) , Abdominal Pain (rate: 7/10), Decreased Appetite, Nausea Neurological: No Symptoms Other: Reports: Depression, Anxiety - Physical Assessment NPO Status Date: 01/30/19 NPO Status Time: 21:00 Pulse: 70 O2 Sat by Pulse Oximetry: 96 Respiratory Rate: 16 Blood Pressure: 121/79 Temperature: 36.2 C Vital Signs: Last Vital Signs Temp 36.2 C 01/31/19 08:45 Pulse 70 01/31/19 08:45 Resp 16 01/31/19 08:45 BP 121/79 01/31/19 08:45 Pulse Ox 96 01/31/19 08:45 Height: 1.68 m Weight: 102.058 kg ASA Class: 2 Mental Status: Alert & Oriented x3 Airway Class: Mallampati = 2 Dentition: Reports: Normal Dentition, Caries Thyro-Mental Finger Breadths: 3 Mouth Opening Finger Breadths: 3 ROM/Head Extension: Full Lungs: Clear to Auscultation, Normal Respiratory Effort Cardiovascular: Regular Rate, Regular Rhythm, No Murmurs - Lab Values: All labs reviewed and noted and within acceptable ranges to proceed with scheduled procedure. Elevated liver enzymes noted. - Imaging/EKG Impressions: EKG: SR rate=66, RSR' in V1 or V2, probably normal variant, ST elevation, probably normal early repol pattern - Allergies Allergies/Adverse Reactions: Allergies Allergy/AdvReac Type Severity Reaction Status Date / Time Iodinated Contrast- Oral and Allergy Hives Verified 01/30/19 12:34 IV Dye [Iodinated Contrast Media - IV Dye] iron dextran complex Allergy Anaphylactic Verified 01/30/19 12:34 Shock Sulfa (Sulfonamide Allergy Hives Verified 01/30/19 12:34 Antibiotics) - Anesthesia Plan Pre-Op Medication Ordered: None - Acknowledgements Anesthesia Type Planned: General Anesthesia Pt an Appropriate Candidate for the Planned Anesthesia: Yes Alternatives and Risks of Anesthesia Discussed w Pt/Guardian: Yes Pt/Guardian Understands and Agrees with Anesthesia Plan: Yes PreAnesthesia Questionnaire HEENT History: Reports: Other (See Below) Other HEENT History: pharyngitis, sinusitis, thrush, wears glasses Cardiovascular History: Reports: Hypertension, Other (See Below) Other Cardiovascular History: chest pain Respiratory History: Reports: Bronchitis, Recurrent, Other (See Below) Other Respiratory History: pulmonary nodule Gastrointestinal History: Reports: Bowel Obstruction, Inflammatory Bowel Disease , Other (See Below) Other Gastrointestinal History: Chrohns disease, colitis, abdominal wall pain, abdominal wall mass Genitourinary History: Reports: None CHOKE REAMER History: Reports: None Musculoskeletal History: Reports: Other (See Below) Other Musculoskeletal History: wrist ganlion cyst, joint pain Neurological History: Reports: None Psychiatric History: Reports: Anxiety Endocrine/Metabolic History: Reports: None Hematologic History: Reports: Anemia, Iron Deficiency Immunologic History: Reports: None Oncologic (Cancer) History: Reports: None Dermatologic History: Reports: Cellulitis, Other (See Below) Other Dermatologic History: rash, furnuncle to cheek - Past Surgical History Head Surgeries/Procedures: Reports: None Cardiovascular Surgical History: Reports: None Respiratory Surgical History: Reports: None GI Surgical History: Reports: Appendectomy, Small Bowel, Other (See Below) Other GI Surgeries/Procedures: ileostomy, abdominal colectomy Female Surgical History: Reports: Hysterectomy Other Female Surgeries/Procedures: Partial hysterectomy Endocrine Surgical History: Reports: None Neurological Surgical History: Reports: Other (See Below) Other Neurological Surgeries/Procedures: low back pain Musculoskeletal Surgical History: Reports: Other (See Below) Other Musculoskeletal Surgeries/Procedures:: Herniated disc Oncologic Surgical History: Reports: None - SUBSTANCE USE Smoking Status *Q: Never Smoker Recreational Drug Use History: No - HOME MEDS Home Medications: Home Meds Adalimumab [Humira] 40 mg SQ MG 05/16/14 [History] ALPRAZolam [Alprazolam] 0.5 mg PO BID PRN 04/10/17 [History] Losartan [Cozaar] 50 mg PO DAILY 04/10/17 [History] Loperamide [Imodium] 2 mg PO QID PRN 01/30/19 [History] Sertraline [Zoloft] 50 mg PO DAILY 01/30/19 [History] - CURRENT (IN HOUSE) MEDS Current Meds: Current Medications Lactated Ringer's (Ringers, Lactated) 1,000 mls @ 125 mls/hr IV ASDIRECTED ROXANNA Stop: 01/31/19 23:00 Lidocaine/Sodium Bicarbonate (Buffered Lidocaine 1% In Ns 8.4%) 0.25 ml IDERM ONETIME PRN PRN Reason: Prior to IV Start Stop: 01/31/19 18:00 Sodium Chloride (Saline Flush) 10 ml FLUSH ASDIRECTED PRN PRN Reason: Keep Vein Open Stop: 01/31/19 18:00 Discontinued Medications Dexamethasone (Dexamethasone) Confirm Administered Dose 4 mg .ROUTE .STK-MED ONE Stop: 01/31/19 08:38 Fentanyl (Sublimaze) Confirm Administered Dose 250 mcg .ROUTE .STK-MED ONE Stop: 01/31/19 08:38 Midazolam HCl (Versed 1 Mg/Ml) Confirm Administered Dose 2 mg .ROUTE .STK-MED ONE Stop: 01/31/19 08:38 Ondansetron HCl (Zofran) Confirm Administered Dose 4 mg .ROUTE .STK-MED ONE Stop: 01/31/19 08:38 Propofol (Diprivan 20 Ml) Confirm Administered Dose 200 mg .ROUTE .STK-MED ONE Stop: 01/31/19 08:38 Rocuronium [place] (Zemuron) Confirm Administered Dose 50 mg .ROUTE .STK-MED ONE Stop: 01/31/19 08:38
[2019-01-31] MEDS ORDERED: Bupivacaine 0.5% 30 ML SDV ONE ×2 (10:11→14:05)
[2019-01-31] MEDS ORDERED: LORazepam 2 MG/ML SDV IVPUSH ONE (11:45)
[2019-01-31] MEDS ORDERED: Ondansetron 4 MG/2 ML SDV ONE (14:28)
[2019-01-31] MEDS ORDERED: Midazolam 1 MG/ML 2 ML SDV ONE (14:28)
[2019-01-31] MEDS ORDERED: Lactated Ringers 2,000 ML ONE (14:28)
[2019-01-31] MEDS ORDERED: fentaNYL 250 MCG/5 ML SDV ONE (14:28)
[2019-01-31] MEDS ORDERED: Propofol 200 MG/20 ML SDV ONE (14:28)
[2019-01-31] MEDS ORDERED: Rocuronium 50 MG/5 ML Vial ONE (14:28)
[2019-01-31] MEDS ORDERED: Lidocaine 1% 4 ML ONE (14:28)
[2019-01-31] MEDS ORDERED: Dexamethasone 4 MG/ML 5 ML MDV ONE (15:34)
[2019-01-31] MEDS ORDERED: HYDROmorphone 0.5 MG/0.5 ML Syringe ONE (15:35)
[2019-01-31] MEDS ORDERED: fentaNYL 100 MCG/2 ML SDV IVPUSH PRN (15:37)
[2019-01-31] MEDS ORDERED: diphenhydrAMINE 50 MG/ML SDV IVPUSH PRN (15:37)
[2019-01-31] MEDS ORDERED: Ondansetron 4 MG/2 ML SDV IVPUSH PRN (15:37)
[2019-01-31] MEDS ORDERED: Neostigmine Methylsulfate 1 MG/ML 5 ML Syringe ONE (15:47)
[2019-01-31] MEDS ORDERED: Ketorolac 30 MG/ML SDV ONE (15:57)
[2019-01-31] MEDS ORDERED: fentaNYL 100 MCG/2 ML SDV ONE (15:59)
--- NOTE | 2019-01-31 16:18 | PCM.POSTAN ---
POST ANESTHESIA ASSESSMENT - MENTAL STATUS Mental Status: Alert, Oriented - VITAL SIGNS Pulse Rate: 82 SaO2: 96 Resp Rate: 8 Blood Pressure: 124/70 Temperature: 36.4 C - RESPIRATORY Respiratory Status: Respiratory Rate WNL, Airway Patent, O2 Saturation Stable, Supplemental Oxygen - CARDIOVASCULAR CV Status: Pulse Rate WNL, Blood Pressure Stable - GASTROINTESTINAL GI Status: No Symptoms - PAIN Pain Score: 0 - POST OP HYDRATION Hydration Status: Adequate & Stable
[2019-01-31] MEDS: HYDROmorphone 0.5 MG/0.5 ML Syringe IVPUSH PRN ×2 (16:20→16:39)
[2019-01-31] MEDS ORDERED: Ibuprofen 800 MG Tab PO PRN (17:35)
[2019-01-31] MEDS ORDERED: Acetaminophen 325 MG Tab PO PRN (17:37)
[2019-01-31 19:54] VITALS: BP 111/72
--- NOTE | 2019-01-31 22:43 | OR ---
DATE OF OPERATION: 01/31/2019 SURGEON: Pete Holland MD PREOPERATIVE DIAGNOSIS: Calculous cholecystitis. POSTOPERATIVE DIAGNOSIS: Calculous cholecystitis. OPERATION PERFORMED: Laparoscopic cholecystectomy. FINDINGS: Massively distended gallbladder with a stone. She had quite a lot of inflammation around the infundibulum consistent with chronic cholecystitis. There were no injuries to her ileostomy. ESTIMATED BLOOD LOSS: Less than 5 mL. PATHOLOGY: Gallbladder and contents. COMPLICATIONS: None. ANESTHESIA: General with endotracheal intubation. FINDINGS: There was a small amount of room to work in the right upper quadrant. I made great efforts to avoid interacting in any way with her ileostomy just inferior to my operative field. She had quite a lot of surgical adhesions as expected from her multiple previous surgeries as well as her total abdominal colectomy, but I was able to get ample visualization of the right upper quadrant with minimal amount of room. INDICATIONS: Kim is a 48-year-old female with a chronic history of Crohn disease, specifically Crohn colitis. She has had multiple surgical operations in the past including a total abdominal colectomy. She has rectal stump. She had symptoms which she ascribed to her Crohn disease recently. She was sent to me after the visit to the ED demonstrated a stone in her gallbladder associated with a very large distended gallbladder. The patient was examined and found to have positive Savage sign in my office, at which time, she also appeared to have at least a suggestion of a biliary obstruction. I repeated her labs today, which showed an increase in her bilirubin up to 1.4, and AST and ALT were also elevated. Actually considered canceling the case because it turned out she has IV contrast allergy, in addition it sounds like we do not have a basket to retrieve the stone from the common duct. I spoke with [facility], and he suggested an MRCP as opposed to transfer for ERCP. The MRCP was done today and thankfully it showed no evidence of common duct stone. We decided to proceed. Because of her contrast allergy, I was extremely hesitant to give her contrast for common duct exploration. The patient agreed to have a laparoscopic cholecystectomy with possibly further surgery including clearing of her duct in the event that it was a common duct stone that was not identified on the MRCP. She was fully informed of the major risks, benefits, and alternatives including an open operation due to the extremely hostile abdomen as was expected given her multiple previous operations. She gave informed consent. DESCRIPTION OF PROCEDURE: Kim was brought back to the operating room and placed in a supine position on the operating table. She was given general anesthesia. De Dios catheter was inserted. The ileostomy appliance was removed and a Telfa dressing was applied to the ileostomy and a Tegaderm was applied in the ileostomy sequestering it from the operative field. I then prepped in the Tegaderm into the operative field and covered the entire abdomen with an Ioban dressing. At this point, the abdominal insufflation was undertaken to a pressure of 15 mmHg with CO2 gas with a Veress needle insertion in the left upper quadrant. There was no evidence for restriction. An optical 5 mm port was passed in the anterior axillary line in the right upper quadrant along the costal margin. I visualized the tissue planes as the port passed into the peritoneum. There was no contact to underlying bowel. I managed to weave the camera transversely across the falciform ligament and across multiple surgical adhesions until I identified the Veress needle up in the air in the left upper quadrant. There was no contact to underlying bowel. The Veress was only into the peritoneal cavity approximately 1 cm. This was removed. The gas was switched to existing port. Two additional 5 mm ports were passed under direct laparoscopic visualization, 1 in the midclavicular line, and 1 in the epigastrium just to the right of the falciform ligament. I avoided the umbilicus and advanced the 12 mm port just superior to that where I could see that there were dense adhesions along the midline. During the entire course of the port placement, I was extremely vigilant in avoiding injury to the ileum as it passed into the ileostomy. As noted before, there was a small amount of room within which to operate in, and that window was utilized to its maximum to create ample visualization. I grasped the gallbladder. It was extremely distended, full of bile, but I was able to grasp it and retract it cranially within the liver in continuity. I grasped the infundibulum. The infundibulum had some dense chronic adhesions. I used a Shoshana dissector to skeletonize both the cystic duct and cystic artery. Both these structures were clipped and transected in the usual fashion after confirming the critical view of safety. At this point, I was able to retract the gallbladder away from the common duct and a hook cautery was utilized to take down the embryonic attachment of the liver to the gallbladder. The gallbladder was finally removed from its attachment and placed in an EndoCatch bag. It was kept temporarily within the peritoneal cavity while I inspected the right upper quadrant for bleeding and bile staining, there was none. I could see that the clips were still in place. No irrigation was undertaken as there was no essentially no blood loss and no bile staining during the entire procedure. At this point, the gallbladder was removed along with a 12 mm port site. A 0 Vicryl stitch was passed using a Constantino-Naldo passer under direct laparoscopic visualization completely obliterating the fascial defect from the 12 mm port site. I once again inspected the gallbladder fossa finding the clips to be still in place and there was no bile staining or bleeding. All the instruments were removed. The ports were opened to desufflate the gas and then finally the ports were removed. 4-0 Monocryl was used to close the skin. Dermabond was applied for a sterile barrier. The drapes were removed and a new ileostomy appliance was fitted specifically to her ileostomy. She had no complications and tolerated the procedure well. She was awakened from anesthesia and moved to Recovery in stable condition. PINO /[id number]
--- NOTE | 2019-02-01 02:26 | PCM48HPAN ---
Post Anesthesia Note - EVALUATION WITHIN 48HRS OF ANESTHETIC Vital Signs in Normal Range: Yes Patient Participated in Evaluation: Yes Respiratory Function Stable: Yes Airway Patent: Yes Cardiovascular Function Stable: Yes Hydration Status Stable: Yes Pain Control Satisfactory: Yes Nausea and Vomiting Control Satisfactory: Yes Mental Status Recovered: Yes
--- NOTE | 2019-02-01 10:34 | MR ---
MRI abdomen (without contrast) Technique: Various sequences were obtained in axial and coronal planes. MRCP was also performed. Findings: Filling defect noted within the gallbladder compatible with gallstone. Gallstone measures approximately 7.5 mm in size. Additional filling defect is seen within the common hepatic duct slightly distal to the bifurcation of the right and left intrahepatic ducts. This finding measures approximately 3-4 mm in size. No intrahepatic biliary duct dilatation is seen. No additional filling defects seen within the CHD or CBD. Cyst noted within the left kidney measuring 3.2 cm in size. No cyst seen within the liver. Impression: 1. 7.5 mm gallstone within the gallbladder. 3-4 mm stone within the proximal CHD. No biliary duct dilatation is seen. 2. Incidental left renal cyst. Diagnostic code #3
== END 2019-01-31 18:40 | disposition home or self-care (01) ==
LOC: JD.SDS 08:40
PROVIDERS: ATTEND Surgery
DX: K80.10 Calculus of gallbladder with chronic cholecystitis without obstruction (principal); I10 Essential (primary) hypertension; F41.9 Anxiety disorder, unspecified; F32.9 Major depressive disorder, single episode, unspecified; D64.9 Anemia, unspecified; Z90.49 Acquired absence of other specified parts of digestive tract; Z88.2 Allergy status to sulfonamides; Z88.8 Allergy status to other drugs, medicaments and biological substances; Z91.041 Radiographic dye allergy status; Z93.2 Ileostomy status; Z79.899 Other long term (current) drug therapy
CPT/HCPCS: 36415; 47562; 74181; 80053; 93005; J1100; J1170; J1885; J2001; J2060; J2250; J2405; J2704; J2710; J3010; J3490; J7120; 00790

== ENCOUNTER 2019-03-23 20:15 | Emergency (ER) | payer OTHER ==
[2019-03-23 20:41] VITALS: BP 86/69
--- NOTE | 2019-03-23 21:03 | EDM.PDOC ---
ED HPI GENERAL MEDICAL PROBLEM - General Chief Complaint: Neurological Problem Stated Complaint: weakness Time Seen by Provider: 03/23/19 21:02 - History of Present Illness INITIAL COMMENTS - FREE TEXT/NARRATIVE: 48-year-old female presents emergency room with lightheadedness and dizziness worse with change of position This is been going on over the last week the patient's been fairly active. Patient has a colostomy because of Crohn's disease. Patient's been drinking fluids but perhaps not enough and the weather has been getting warmer. She has follow-up coming up with her user interface engineer. Patient is not any chest pain chest pressure breathing difficulties or shortness of breath really no nausea vomiting she's had a lot of loose stools out of her ostomy. Treatments BACTERIOLOGIST MEDICAL: Reports: Other (see below) Other Treatments BACTERIOLOGIST MEDICAL: fluids 108 ounces Lower Leg Pain Score (Numeric/FACES): 6 - Related Data Allergies Allergy/AdvReac Type Severity Reaction Status Date / Time Iodinated Contrast- Oral and Allergy Hives Verified 01/30/19 12:34 IV Dye [Iodinated Contrast Media - IV Dye] iron dextran complex Allergy Anaphylactic Verified 01/30/19 12:34 Shock Sulfa (Sulfonamide Allergy Hives Verified 01/30/19 12:34 Antibiotics) Home Meds: Home Meds Adalimumab [Humira] 40 mg SQ MG 05/16/14 [History] ALPRAZolam [Alprazolam] 0.5 mg PO BID PRN 04/10/17 [History] Losartan [Cozaar] 50 mg PO DAILY 04/10/17 [History] Loperamide [Imodium] 2 mg PO QID PRN 01/30/19 [History] Sertraline [Zoloft] 50 mg PO DAILY 01/30/19 [History] Past Medical History HEENT History: Reports: Other (See Below) Other HEENT History: pharyngitis, sinusitis, thrush, wears glasses Cardiovascular History: Reports: Hypertension, Other (See Below) Other Cardiovascular History: chest pain Respiratory History: Reports: Bronchitis, Recurrent, Other (See Below) Other Respiratory History: pulmonary nodule Gastrointestinal History: Reports: Bowel Obstruction, Inflammatory Bowel Disease , Other (See Below) Other Gastrointestinal History: Chrohns disease, colitis, abdominal wall pain, abdominal wall mass Genitourinary History: Reports: None DISTRIBUTION COORDINATOR History: Reports: None Musculoskeletal History: Reports: Other (See Below) Other Musculoskeletal History: wrist ganlion cyst, joint pain Neurological History: Reports: None Psychiatric History: Reports: Anxiety Endocrine/Metabolic History: Reports: None Hematologic History: Reports: Anemia, Iron Deficiency Immunologic History: Reports: None Oncologic (Cancer) History: Reports: None Dermatologic History: Reports: Cellulitis, Other (See Below) Other Dermatologic History: rash, furnuncle to cheek - Past Surgical History Head Surgeries/Procedures: Reports: None Cardiovascular Surgical History: Reports: None Respiratory Surgical History: Reports: None GI Surgical History: Reports: Appendectomy, Small Bowel, Other (See Below) Other GI Surgeries/Procedures: ileostomy, abdominal colectomy Female Surgical History: Reports: Hysterectomy Other Female Surgeries/Procedures: Partial hysterectomy Endocrine Surgical History: Reports: None Neurological Surgical History: Reports: Other (See Below) Other Neurological Surgeries/Procedures: low back pain Musculoskeletal Surgical History: Reports: Other (See Below) Other Musculoskeletal Surgeries/Procedures:: Herniated disc Oncologic Surgical History: Reports: None Social & Family History - Family History Family Medical History: Noncontributory - Tobacco Use Smoking Status *Q: Never Smoker - Caffeine Use Caffeine Use: Reports: None - Recreational Drug Use Recreational Drug Use: No ED ROS GENERAL - Review of Systems Review Of Systems: Unable To Obtain HEENT: Reports: No Symptoms Respiratory: Reports: No Symptoms Cardiovascular: Reports: No Symptoms Endocrine: Reports: No Symptoms GI/Abdominal: Denies: Abdominal Pain : Reports: No Symptoms Skin: Reports: No Symptoms Neurological: Reports: Dizziness ED EXAM, NEURO - Physical Exam Exam: See Below Exam Limited By: No Limitations General Appearance: Alert, No Apparent Distress, Other (Going from sitting to standing or lying down to sitting does cause her dizziness) Ears: Normal External Exam, Normal Canal, Hearing Grossly Normal, Normal TMs Nose: Normal Inspection, Normal Mucosa, No Blood Throat/Mouth: Normal Inspection, Normal Lips, Normal Teeth, Normal Gums, Normal Oropharynx, Normal Voice, No Airway Compromise Head Exam: Atraumatic, Normocephalic Neck: Normal Inspection, Supple, Non-Tender, Full Range of Motion Respiratory/Chest: No Respiratory Distress, Lungs Clear, Normal Breath Sounds, No Accessory Muscle Use, Chest Non-Tender Cardiovascular: Normal Peripheral Pulses, Regular Rate, Rhythm, No Edema, No Gallop, No JVD, No Murmur, No Rub GI/Abdominal: Normal Bowel Sounds, Soft, Non-Tender, Other (Ostomy has watery stool limit) Neurological: Alert, Normal Mood/Affect Extremities: Normal Inspection, Non-Tender Course - Vital Signs Last Recorded V/S: Last Vital Signs Temp 36.3 C 03/23/19 20:40 Pulse 104 H 03/23/19 20:40 Resp 20 03/23/19 20:40 BP 86/69 L 03/23/19 20:40 Pulse Ox 98 03/23/19 20:40 Orthostatic Blood Pressure [ 86/17 Standing] Orthostatic Blood Pressure [ 105/77 Sitting] Orthostatic Blood Pressure [ 96/76 Supine] - Orders/Labs/Meds Labs: Laboratory Tests 03/23/19 03/23/19 03/23/19 Range/Units 21:46 21:46 21:46 WBC 8.01 (3.98-10.04) K/mm3 RBC 5.74 H (3.98-5.22) M/mm3 Hgb 17.0 H (11.2-15.7) gm/L Hct 47.6 H (34.1-44.9) % MCV 82.9 D (79.4-94.8) fl MCH 29.6 (25.6-32.2) pg MCHC 35.7 H (32.2-35.5) g/dl RDW Std Deviation 42.2 (36.4-46.3) fL Plt Count 335 (182-369) K/mm3 MPV 8.6 L (9.4-12.3) fl Neutrophils % (Manual) 65 H (40-60) % Band Neutrophils % 3 (0-10) % Lymphocytes % (Manual) 19 L (20-40) % Atypical Lymphs % 0 % Monocytes % (Manual) 10 (2-10) % Eosinophils % (Manual) 2 (0.7-5.8) % Basophils % (Manual) 1 (0.1-1.2) Platelet Estimate Adequate Plt Morphology Comment Normal RBC Morph Comment Normal Sodium 132 L (136-145) mEq/L Potassium 4.2 (3.5-5.1) mEq/L Chloride 96 L (98-107) mEq/L Carbon Dioxide 22 (21-32) mEq/L Anion Gap 18.2 H (5-15) BUN 42 H (7-18) mg/dL Creatinine 1.2 H (0.55-1.02) mg/dL Est Cr Clr Drug Dosing 53.67 mL/min Estimated GFR (MDRD) 48 (>60) mL/min BUN/Creatinine Ratio 35.0 H (14-18) Glucose 101 (74-106) mg/dL Calcium 9.4 (8.5-10.1) mg/dL Total Bilirubin 1.3 H (0.2-1.0) mg/dL AST 34 (15-37) U/L ALT 82 H (14-59) U/L Alkaline Phosphatase 147 H (46-116) U/L Total Protein 9.1 H (6.4-8.2) g/dl Albumin 4.8 (3.4-5.0) g/dl Globulin 4.3 gm/dL Albumin/Globulin Ratio 1.1 (1-2) Urine Color Yellow (Yellow) Urine Appearance Clear (Clear) Urine pH 6.0 (5.0-8.0) Ur Specific [place] 1.020 (1.005-1.030) Urine Protein Trace H (Negative) Urine Glucose (UA) Negative (Negative) Urine Ketones Trace H (Negative) Urine Occult Blood 1+ H (Negative) Urine Nitrite Negative (Negative) Urine Bilirubin Negative (Negative) Urine Urobilinogen 0.2 (0.2-1.0) Ur Leukocyte Esterase Negative (Negative) Urine RBC 5-10 H (0-5) /hpf Urine WBC 0-5 (0-5) /hpf Ur Squamous Epith Cells 0-5 (0-5) /hpf Urine Bacteria Not seen (FEW) /hpf Urine Mucus Not seen (FEW) /hpf Meds: Medications Discontinued Medications Generic Name Dose Route Start Last Admin Trade Name Freq PRN Reason Stop Dose Admin Lactated Ringer's 1,000 mls @ 999 mls/hr 03/23/19 21:18 03/23/19 21:51 Ringers, Lactated IV 03/23/19 22:18 999 mls/hr .BOLUS ONE Administration - Re-Assessments/Exams Free Text/Narrative Re-Assessment/Exam: 03/23/19 23:26 Patient received a liter fluid and feels much better she would like to go home at this point she'll continue pushing by mouth fluids at home Departure - Departure Time of Disposition: 23:26 Disposition: Home, Self-Care 01 Clinical Impression: Dehydration - Discharge Information Referrals: Gail Childs PA-C [Primary Care Provider] - Forms: ED Department Discharge Additional Instructions: Return to the emergency room with any questions problems worsening symptoms. Push lots of fluids you should be voiding every hour and a half while you're awake avoid caffeine increase fluids if you can be outside. Follow up with your regular provider in a week and follow-up with user interface engineer as scheduled. You had a few red cells noted in your urine talk this over with your regular provider
[2019-03-23] MEDS ORDERED: Lactated Ringers 1,000 ML IV ONE (21:18)
== END 2019-03-23 23:36 | disposition home or self-care (01) ==
LOC: JD.ED 20:15
DX: E86.0 Dehydration (principal); I10 Essential (primary) hypertension; F41.9 Anxiety disorder, unspecified; D64.9 Anemia, unspecified; Z79.899 Other long term (current) drug therapy; Z91.041 Radiographic dye allergy status; Z88.2 Allergy status to sulfonamides
CPT/HCPCS: 36415; 80053; 81001; 85007; 85027; 96360; 99285; J7120; 99283

== ENCOUNTER 2019-11-23 09:47 | Emergency (ER) | payer OTHER ==
[2019-11-23] MEDS ORDERED: Ondansetron 4 MG/2 ML SDV IVPUSH ONE (10:14)
[2019-11-23] MEDS ORDERED: Sodium Chloride 0.9% 10 ML Syringe FLUSH PRN (10:14)
[2019-11-23] MEDS ORDERED: Sodium Chloride 0.9% 1,000 ML IV SCH (10:15)
--- NOTE | 2019-11-23 11:51 | EDM.PDOC ---
ED HPI GENERAL MEDICAL PROBLEM - General Chief Complaint: Fever Stated Complaint: FLU SX Time Seen by Provider: 11/23/19 09:59 Source of Information: Reports: Patient, Family History Limitations: Reports: No Limitations - History of Present Illness INITIAL COMMENTS - FREE TEXT/NARRATIVE: The patient presents with a fever, chills, cough, body aches and lethargy. This all started yesterday. She has nausea but is keeping water down. She did get the flu shot this year. She has crohn's disease and a colostomy and she is having looser stools. She has no dysuria, chest pain or shortness of breath. Onset: Gradual Duration: Day(s): (Yesterday) Location: Reports: Generalized Quality: Reports: Ache Severity: Moderate Improves with: Reports: None Worsens with: Reports: None Associated Symptoms: Reports: Cough, Fever/Chills, Nausea/Vomiting. Denies: Chest Pain, Headaches, Shortness of Breath Abdomen Pain Score (Numeric/FACES): 8 - Related Data Allergies Allergy/AdvReac Type Severity Reaction Status Date / Time Iodinated Contrast Media Allergy Hives Verified 11/23/19 10:02 [Iodinated Contrast Media - IV Dye] iron dextran complex Allergy Anaphylactic Verified 11/23/19 10:02 Shock Sulfa (Sulfonamide Allergy Hives Verified 11/23/19 10:02 Antibiotics) Home Meds: Home Meds Adalimumab [Humira] 40 mg SQ MG 05/16/14 [History] ALPRAZolam [Alprazolam] 0.5 mg PO BID PRN 04/10/17 [History] Loperamide [Imodium] 2 mg PO QID PRN 01/30/19 [History] Sertraline [Zoloft] 50 mg PO DAILY 01/30/19 [History] Ondansetron [Zofran ODT] 4 mg PO Q6H PRN #20 tab.dis 11/23/19 [Rx] Oseltamivir [Tamiflu] 75 mg PO BID #10 cap 11/23/19 [Rx] Past Medical History HEENT History: Reports: Impaired Vision, Other (See Below) Other HEENT History: pharyngitis, sinusitis, thrush, wears glasses Cardiovascular History: Reports: Hypertension, Other (See Below) Other Cardiovascular History: chest pain Respiratory History: Reports: Bronchitis, Recurrent, Other (See Below) Other Respiratory History: pulmonary nodule Gastrointestinal History: Reports: Bowel Obstruction, Inflammatory Bowel Disease , Other (See Below) Other Gastrointestinal History: Chrohns disease, colitis, abdominal wall pain, abdominal wall mass Genitourinary History: Reports: None 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: Musculoskeletal History: Reports: Other (See Below) Other Musculoskeletal History: wrist ganlion cyst, joint pain Neurological History: Reports: None Psychiatric History: Reports: Anxiety Endocrine/Metabolic History: Reports: None Hematologic History: Reports: Anemia, B12 Deficiency, Iron Deficiency, Other ( See Below) Other Hematologic History: Vit D deficiency Immunologic History: Reports: Other (See Below) Other Immunologic History: Crohn's Oncologic (Cancer) History: Reports: None Dermatologic History: Reports: Cellulitis, Other (See Below) Other Dermatologic History: rash, furnuncle to cheek - Infectious Disease History Infectious Disease History: Reports: Chicken Pox - Past Surgical History Cardiovascular Surgical History: Reports: None Respiratory Surgical History: Reports: None GI Surgical History: Reports: Appendectomy, Small Bowel, Other (See Below) Other GI Surgeries/Procedures: ileostomy, abdominal colectomy Female Surgical History: Reports: Hysterectomy Other Female Surgeries/Procedures: Partial hysterectomy Endocrine Surgical History: Reports: None Neurological Surgical History: Reports: Other (See Below) Other Neurological Surgeries/Procedures: low back pain Musculoskeletal Surgical History: Reports: Other (See Below) Other Musculoskeletal Surgeries/Procedures:: Herniated disc Oncologic Surgical History: Reports: None Social & Family History - Family History Family Medical History: Noncontributory - Tobacco Use Smoking Status *Q: Never Smoker Second Hand Smoke Exposure: No - Caffeine Use Caffeine Use: Reports: None - Recreational Drug Use Recreational Drug Use: No ED ROS GENERAL - Review of Systems Review Of Systems: See Below Constitutional: Reports: Fever, Chills HEENT: Reports: No Symptoms Respiratory: Reports: Cough. Denies: Shortness of Breath Cardiovascular: Reports: No Symptoms Endocrine: Reports: No Symptoms GI/Abdominal: Reports: Nausea. Denies: Abdominal Pain, Vomiting : Reports: No Symptoms Musculoskeletal: Reports: Muscle Stiffness ED EXAM, SEPSIS - Physical Exam Exam: See Below Exam Limited By: No Limitations General Appearance: Alert, No Apparent Distress Ears: Normal External Exam Nose: Normal Inspection Head: Atraumatic, Normocephalic Neck: Normal Inspection Respiratory/Chest: No Respiratory Distress, Lungs Clear, Normal Breath Sounds Cardiovascular: Regular Rate, Rhythm, No Edema, No Murmur GI/Abdominal Exam: Soft, Non-Tender, No Organomegaly, No Mass Extremities: Normal Inspection Neurological: Alert, Oriented, No Motor/Sensory Deficits Course - Vital Signs Last Recorded V/S: Last Vital Signs Temp 100.6 F 11/23/19 09:55 Pulse 106 H 11/23/19 09:55 Resp 20 11/23/19 09:55 BP 156/100 H 11/23/19 09:55 Pulse Ox 99 11/23/19 09:55 - Orders/Labs/Meds Orders: Active Orders 24 hr Category Date Time Status Cardiac Monitoring [RC] . DIRECTED Care 11/23/19 10:14 Active Peripheral IV Care [RC] . DIRECTED Care 11/23/19 10:14 Active Sodium Chloride 0.9% [Normal Saline] 1,000 ml Med 11/23/19 10:15 Active IV .BOLUS Sodium Chloride 0.9% [Saline Flush] Med 11/23/19 10:14 Active 10 ml FLUSH ASDIRECTED PRN ED Antiemetic Medication Reflex [OM.PC] Stat Oth 11/23/19 10:14 Ordered Peripheral IV Insertion Adult [OM.PC] Stat Oth 11/23/19 10:14 Ordered Medication Orders Sodium Chloride (Normal Saline) 1,000 mls @ 1,000 mls/hr IV .BOLUS ROXANNA Last Admin: 11/23/19 10:37 Dose: 1,000 mls/hr Sodium Chloride (Saline Flush) 10 ml FLUSH ASDIRECTED PRN PRN Reason: Keep Vein Open Last Admin: 11/23/19 10:33 Dose: 10 ml Labs: Laboratory Tests 11/23/19 11/23/19 Range/Units 10:51 10:51 WBC 5.64 (3.98-10.04) K/mm3 RBC 5.06 (3.98-5.22) M/mm3 Hgb 14.7 (11.2-15.7) gm/dl Hct 43.0 (34.1-44.9) % MCV 85.0 (79.4-94.8) fl MCH 29.1 (25.6-32.2) pg MCHC 34.2 (32.2-35.5) g/dl RDW Std Deviation 41.1 (36.4-46.3) fL Plt Count 184 D (182-369) K/mm3 MPV 8.5 L (9.4-12.3) fl Neut % (Auto) 76.7 H (34.0-71.1) % Lymph % (Auto) 11.2 L (19.3-51.7) % [place] % (Auto) 9.9 (4.7-12.5) % Eos % (Auto) 1.6 (0.7-5.8) Baso % (Auto) 0.2 (0.1-1.2) % Neut # (Auto) 4.33 (1.56-6.13) K/mm3 Lymph # (Auto) 0.63 L (1.18-3.74) K/mm3 [place] # (Auto) 0.56 H (0.24-0.36) K/mm3 Eos # (Auto) 0.09 (0.04-0.36) K/mm3 Baso # (Auto) 0.01 (0.01-0.08) K/mm3 Sodium 136 (136-145) mEq/L Potassium 3.8 (3.5-5.1) mEq/L Chloride 101 (98-107) mEq/L Carbon Dioxide 29 (21-32) mEq/L Anion Gap 9.8 (5-15) BUN 18 (7-18) mg/dL Creatinine 0.9 (0.55-1.02) mg/dL Est Cr Clr Drug Dosing 70.78 mL/min Estimated GFR (MDRD) > 60 (>60) mL/min BUN/Creatinine Ratio 20.0 H (14-18) Glucose 96 (74-106) mg/dL Calcium 8.8 (8.5-10.1) mg/dL Total Bilirubin 0.8 (0.2-1.0) mg/dL AST 49 H (15-37) U/L ALT 88 H (14-59) U/L Alkaline Phosphatase 120 H (46-116) U/L Total Protein 7.9 (6.4-8.2) g/dl Albumin 3.7 (3.4-5.0) g/dl Globulin 4.2 gm/dL Albumin/Globulin Ratio 0.9 L (1-2) Lipase 213 (73-393) U/L Meds: Medications Generic Name Dose Route Start Last Admin Trade Name Frehank PRN Reason Stop Dose Admin Sodium Chloride 1,000 mls @ 1,000 mls/hr 11/23/19 10:15 11/23/19 10:37 Normal Saline IV 1,000 mls/hr .BOLUS ROXANNA Administration Sodium Chloride 10 ml 11/23/19 10:14 11/23/19 10:33 Saline Flush FLUSH 10 ml ASDIRECTED PRN Administration Keep Vein Open Discontinued Medications Generic Name Dose Route Start Last Admin Trade Name Freq PRN Reason Stop Dose Admin Ondansetron HCl 4 mg 11/23/19 10:14 11/23/19 10:35 Zofran IVPUSH 11/23/19 10:15 4 mg ONETIME ONE Administration - Re-Assessments/Exams Free Text/Narrative Re-Assessment/Exam: 11/23/19 11:50 I ordered an IV NS 1L bolus, zofran 4mg IV, labs and influenza. 11/23/19 11:51 Her CBC looks good. Her AST was elevate at 49 and ALT is 88. Her alk phos is elevated at 120. These have all been elevated before. Her lipase is negative. Her influenza A is positive. I will get her on some tamiflu. Departure - Departure Time of Disposition: 11:55 Disposition: Home, Self-Care 01 Condition: Good Clinical Impression: Influenza A - Discharge Information *PRESCRIPTION DRUG MONITORING PROGRAM REVIEWED*: Not Applicable *COPY OF PRESCRIPTION DRUG MONITORING REPORT IN PATIENT JOHN: Not Applicable Prescriptions: Ondansetron [Zofran ODT] 4 mg PO Q6H PRN #20 tab.dis PRN Reason: Nausea\vomiting Oseltamivir [Tamiflu] 75 mg PO BID #10 cap Referrals: Gail Childs PA-C [Primary Care Provider] - 1 Week Additional Instructions: Drink plenty of fluids. Take zofran every 6 hours as needed for nausea or vomiting. Take the tamiflu 2 times per day for 5 days. Please return if you are worse. Sepsis Event Note - Evaluation Sepsis Screening Result: No Definite Risk - Focused Exam Vital Signs: Vital Signs Temp Pulse Resp BP Pulse Ox 11/23/19 09:55 100.6 F 106 H 20 156/100 H 99 Date Exam was Performed: 11/23/19 Time Exam was Performed: 11:45 - My Orders Last 24 Hours: My Active Orders 11/23/19 10:14 Cardiac Monitoring [RC] . DIRECTED Peripheral IV Care [RC] . DIRECTED Sodium Chloride 0.9% [Saline Flush] 10 ml FLUSH ASDIRECTED PRN ED Antiemetic Medication Reflex [OM.PC] Stat Peripheral IV Insertion Adult [OM.PC] Stat 11/23/19 10:15 Sodium Chloride 0.9% [Normal Saline] 1,000 ml IV .BOLUS - Assessment/Plan Last 24 Hours: My Active Orders 11/23/19 10:14 Cardiac Monitoring [RC] . DIRECTED Peripheral IV Care [RC] . DIRECTED Sodium Chloride 0.9% [Saline Flush] 10 ml FLUSH ASDIRECTED PRN ED Antiemetic Medication Reflex [OM.PC] Stat Peripheral IV Insertion Adult [OM.PC] Stat 11/23/19 10:15 Sodium Chloride 0.9% [Normal Saline] 1,000 ml IV .BOLUS
[2019-11-23] MEDS ORDERED: Sodium Chloride 0.9% 1,000 ML IV ONE (12:04)
[2019-11-23] MEDS ORDERED: Acetaminophen 325 MG Tab PO ONE (12:32)
[2019-11-23 14:18] VITALS: BP 132/83
[2019-11-23 14:20] VITALS: PULSE 90
== END 2019-11-23 13:25 | disposition home or self-care (01) ==
LOC: JD.ED 09:47
DX: J10.1 Influenza due to other identified influenza virus with other respiratory manifestations (principal); I10 Essential (primary) hypertension; F41.9 Anxiety disorder, unspecified; Z91.041 Radiographic dye allergy status; Z91.048 Other nonmedicinal substance allergy status; Z88.2 Allergy status to sulfonamides; Z79.899 Other long term (current) drug therapy; Z90.49 Acquired absence of other specified parts of digestive tract; Z90.710 Acquired absence of both cervix and uterus
CPT/HCPCS: 36415; 80053; 83690; 85025; 87804; 96361; 96374; 99283; A9270; J2405; J7030

== ENCOUNTER 2020-07-21 16:19 | Emergency (ER) | payer OTHER ==
[2020-07-21 17:02] VITALS: BP 133/97; PULSE 117
[2020-07-21] MEDS ORDERED: Aspirin 81 MG Tab.Chew PO ONE (17:21)
[2020-07-21] MEDS ORDERED: Sodium Chloride 0.9% 10 ML Syringe FLUSH PRN ×2 (17:21→18:43)
[2020-07-21] MEDS ORDERED: Sodium Chloride 0.9% 1,000 ML IV SCH (17:30)
[2020-07-21] MEDS ORDERED: methylPREDNISolone Sodium Succinate 125 MG/2 ML SDV IVPUSH ONE (18:29)
[2020-07-21] MEDS ORDERED: diphenhydrAMINE 50 MG/ML SDV IVPUSH ONE (18:30)
[2020-07-21] MEDS ORDERED: Iopamidol 755 Mg/ML 100 ML Bottle IVPUSH ONE (18:43)
[2020-07-21] MEDS ORDERED: Sodium Chloride 0.9% 100 ML IV SCH (18:45)
--- NOTE | 2020-07-21 19:30 | EDM.PDOC ---
ED HPI GENERAL MEDICAL PROBLEM - General Chief Complaint: Respiratory Problem Stated Complaint: DEHYDRATION/HEART RACING Time Seen by Provider: 07/21/20 17:07 Source of Information: Reports: Patient History Limitations: Reports: No Limitations - History of Present Illness INITIAL COMMENTS - FREE TEXT/NARRATIVE: The patient presents with possible dehydration. The patient has a history of Crohn's disease and gets dehydrated easily. She will go for infusions at [facility] weekly. She has some chest tightness and some mild shortness of breath. She has no fever or cough. She does have abdominal pain and some diarrhea. That is under control with immodium. She has no history of heart disease but there is some history of in her family. She does not smoke. She has not been tested for COVID 19. She does not think she has been around anyone with COVID 19. She says her heart has been racing and she has "fog head." Duration: Day(s): Location: Reports: Chest Quality: Reports: Other (tightness) Improves with: Reports: None Worsens with: Reports: None Associated Symptoms: Reports: Chest Pain, Shortness of Breath. Denies: Cough, Fever/Chills, Headaches, Nausea/Vomiting Chest Pain Score (Numeric/FACES): 3 - Related Data Allergies Allergy/AdvReac Type Severity Reaction Status Date / Time Iodinated Contrast Media Allergy Hives Verified 07/21/20 16:53 [Iodinated Contrast Media - IV Dye] iron dextran complex Allergy Anaphylactic Verified 07/21/20 16:53 Shock Sulfa (Sulfonamide Allergy Hives Verified 07/21/20 16:53 Antibiotics) Home Meds: Home Meds Adalimumab [Humira] 40 mg SQ MG 05/16/14 [History] ALPRAZolam [Alprazolam] 0.5 mg PO BID PRN 04/10/17 [History] Loperamide [Imodium] 2 mg PO QID PRN 01/30/19 [History] Vortioxetine Hydrobromide [Trintellix] 10 mg PO DAILY 07/21/20 [History] Past Medical History HEENT History: Reports: Impaired Vision, Other (See Below) Other HEENT History: pharyngitis, sinusitis, thrush, wears glasses Cardiovascular History: Reports: Hypertension, Other (See Below) Other Cardiovascular History: chest pain Respiratory History: Reports: Bronchitis, Recurrent, Other (See Below) Other Respiratory History: pulmonary nodule Gastrointestinal History: Reports: Bowel Obstruction, Inflammatory Bowel Disease, Other (See Below) Other Gastrointestinal History: Chrohns disease, colitis, abdominal wall pain, abdominal wall mass Genitourinary History: Reports: None 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: Musculoskeletal History: Reports: Other (See Below) Other Musculoskeletal History: wrist ganlion cyst, joint pain Neurological History: Reports: None Psychiatric History: Reports: Anxiety Endocrine/Metabolic History: Reports: None Hematologic History: Reports: Anemia, B12 Deficiency, Iron Deficiency, Other (See Below) Other Hematologic History: Vit D deficiency Immunologic History: Reports: Other (See Below) Other Immunologic History: Crohn's Oncologic (Cancer) History: Reports: None Dermatologic History: Reports: Cellulitis, Other (See Below) Other Dermatologic History: rash, furnuncle to cheek - Infectious Disease History Infectious Disease History: Reports: Chicken Pox, Influenza - Past Surgical History Head Surgeries/Procedures: Reports: None Cardiovascular Surgical History: Reports: None Respiratory Surgical History: Reports: None GI Surgical History: Reports: Appendectomy, Small Bowel, Other (See Below) Other GI Surgeries/Procedures: ileostomy, abdominal colectomy Female Surgical History: Reports: Hysterectomy Other Female Surgeries/Procedures: Partial hysterectomy Endocrine Surgical History: Reports: None Neurological Surgical History: Reports: Other (See Below) Other Neurological Surgeries/Procedures: low back pain Musculoskeletal Surgical History: Reports: Other (See Below) Other Musculoskeletal Surgeries/Procedures:: Herniated disc Oncologic Surgical History: Reports: None Social & Family History - Family History Family Medical History: Noncontributory - Tobacco Use Smoking Status *Q: Never Smoker - Caffeine Use Caffeine Use: Reports: None - Recreational Drug Use Recreational Drug Use: No ED ROS GENERAL - Review of Systems Review Of Systems: See Below Constitutional: Reports: No Symptoms HEENT: Reports: No Symptoms Respiratory: Reports: Shortness of Breath Cardiovascular: Reports: Chest Pain Endocrine: Reports: No Symptoms GI/Abdominal: Reports: No Symptoms : Reports: No Symptoms Musculoskeletal: Reports: No Symptoms ED EXAM, GENERAL - Physical Exam Exam: See Below Exam Limited By: No Limitations General Appearance: Alert, No Apparent Distress Ears: Normal External Exam Nose: Normal Inspection Head: Atraumatic, Normocephalic Neck: Normal Inspection Respiratory/Chest: No Respiratory Distress, Lungs Clear, Normal Breath Sounds Cardiovascular: Regular Rate, Rhythm, No Edema, No Murmur GI/Abdominal: Soft, Non-Tender, No Organomegaly, No Mass Back Exam: Normal Inspection Extremities: Normal Inspection EKG INTERPRETATION EKG Date: 07/21/20 Time: 19:35 Rhythm: Other (sinus tachycardia) Rate (Beats/Min): 100 [place]: Normal P-Wave: Present QRS: Normal ST-T: Elevated (anterior leads normal early repol) QT: Normal Course - Vital Signs Last Recorded V/S: Last Vital Signs Temp 97 F 07/21/20 16:56 Pulse 117 H 07/21/20 16:56 Resp 13 07/21/20 16:56 BP 133/97 H 07/21/20 16:56 Pulse Ox 95 07/21/20 16:56 - Orders/Labs/Meds Orders: Active Orders 24 hr Category Date Time Status Cardiac Monitoring [RC] . DIRECTED Care 07/21/20 17:21 Active EKG 12 Lead [EKG Documentation Completion] [RC] STAT Care 07/21/20 17:05 Active Peripheral IV Care [RC] . DIRECTED Care 07/21/20 17:22 Active Ang Chest [CT] Stat Exams 07/21/20 18:17 Taken Chest 1V Frontal [CR] Stat Exams 07/21/20 17:22 Taken CORONAVIRUS COVID-19 PCR PHL Stat Lab 07/21/20 19:45 Received Sodium Chloride 0.9% [Normal Saline] 1,000 ml Med 07/21/20 17:30 Active IV .BOLUS Sodium Chloride 0.9% [Normal Saline] 100 ml Med 07/21/20 18:45 Active IV ASDIRECTED Sodium Chloride 0.9% [Saline Flush] Med 07/21/20 17:21 Active 10 ml FLUSH ASDIRECTED PRN Sodium Chloride 0.9% [Saline Flush] Med 07/21/20 18:43 Active 10 ml FLUSH ONETIME PRN Peripheral IV Insertion Adult [OM.PC] Stat Oth 07/21/20 17:21 Ordered Medication Orders Sodium Chloride (Normal Saline) 1,000 mls @ 1,000 mls/hr IV .BOLUS ROXANNA Last Admin: 07/21/20 17:43 Dose: 1,000 mls/hr Documented by: [email or web address] Sodium Chloride (Normal Saline) 100 mls @ 60 mls/hr IV ASDIRECTED ROXANNA Last Admin: 07/21/20 19:35 Dose: 60 mls/hr Documented by: [email or web address] Sodium Chloride (Saline Flush) 10 ml FLUSH ASDIRECTED PRN PRN Reason: Keep Vein Open Last Admin: 07/21/20 17:43 Dose: 10 ml Documented by: [email or web address] Sodium Chloride (Saline Flush) 10 ml FLUSH ONETIME PRN PRN Reason: Keep Vein Open Last Admin: 07/21/20 19:35 Dose: 10 ml Documented by: [id number] Labs: Laboratory Tests 07/21/20 07/21/20 07/21/20 Range/Units 17:21 17:30 17:30 WBC 11.98 H (3.98-10.04) K/mm3 RBC 5.76 H (3.98-5.22) M/mm3 Hgb 16.8 H (11.2-15.7) gm/dl Hct 48.8 H (34.1-44.9) % MCV 84.7 (79.4-94.8) fl MCH 29.2 (25.6-32.2) pg MCHC 34.4 (32.2-35.5) g/dl RDW Std Deviation 44.8 (36.4-46.3) fL Plt Count 381 H (182-369) K/mm3 MPV 8.3 L (9.4-12.3) fl Neut % (Auto) 77.5 H (34.0-71.1) % Lymph % (Auto) 11.9 L (19.3-51.7) % [place] % (Auto) 8.3 (4.7-12.5) % Eos % (Auto) 1.8 (0.7-5.8) Baso % (Auto) 0.2 (0.1-1.2) % Neut # (Auto) 9.30 H (1.56-6.13) K/mm3 Lymph # (Auto) 1.42 (1.18-3.74) K/mm3 [place] # (Auto) 1.00 H (0.24-0.36) K/mm3 Eos # (Auto) 0.21 (0.04-0.36) K/mm3 Baso # (Auto) 0.02 (0.01-0.08) K/mm3 Manual Slide Review Normal smear PT 10.2 (9.7-11.7) SECONDS INR 0.95 APTT 25 (22-31) SECONDS D-Dimer, Quantitative 2.19 H (0.19-0.50) mg/L Sodium 131 L (136-145) mEq/L Potassium 4.1 (3.5-5.1) mEq/L Chloride 96 L (98-107) mEq/L Carbon Dioxide 19 L (21-32) mEq/L Anion Gap 20.1 H (5-15) BUN 27 H (7-18) mg/dL Creatinine 1.1 H (0.55-1.02) mg/dL Est Cr Clr Drug Dosing 57.91 mL/min Estimated GFR (MDRD) 53 (>60) mL/min BUN/Creatinine Ratio 24.5 H (14-18) Glucose 100 (74-106) mg/dL Lactic Acid (0.4-2.0) mmol/L Calcium 9.6 (8.5-10.1) mg/dL Phosphorus 3.6 (2.6-4.7) mg/dL Magnesium 2.0 (1.8-2.4) mg/dl Ferritin (8-252) ng/ml Total Bilirubin 0.5 (0.2-1.0) mg/dL AST 34 (15-37) U/L ALT 62 H (14-59) U/L Alkaline Phosphatase 194 H (46-116) U/L Lactate Dehydrogenase 186 (81-234) U/L Troponin I < 0.017 (0.00-0.056) ng/mL C-Reactive Protein 1.3 H* (<1.0) mg/dL Total Protein 9.5 H (6.4-8.2) g/dl Albumin 4.3 (3.4-5.0) g/dl Globulin 5.2 gm/dL Albumin/Globulin Ratio 0.8 L (1-2) 07/21/20 07/21/20 Range/Units 17:30 17:40 WBC (3.98-10.04) K/mm3 RBC (3.98-5.22) M/mm3 Hgb (11.2-15.7) gm/dl Hct (34.1-44.9) % MCV (79.4-94.8) fl MCH (25.6-32.2) pg MCHC (32.2-35.5) g/dl RDW Std Deviation (36.4-46.3) fL Plt Count (182-369) K/mm3 MPV (9.4-12.3) fl Neut % (Auto) (34.0-71.1) % Lymph % (Auto) (19.3-51.7) % [place] % (Auto) (4.7-12.5) % Eos % (Auto) (0.7-5.8) Baso % (Auto) (0.1-1.2) % Neut # (Auto) (1.56-6.13) K/mm3 Lymph # (Auto) (1.18-3.74) K/mm3 [place] # (Auto) (0.24-0.36) K/mm3 Eos # (Auto) (0.04-0.36) K/mm3 Baso # (Auto) (0.01-0.08) K/mm3 Manual Slide Review PT (9.7-11.7) SECONDS INR APTT (22-31) SECONDS D-Dimer, Quantitative (0.19-0.50) mg/L Sodium (136-145) mEq/L Potassium (3.5-5.1) mEq/L Chloride (98-107) mEq/L Carbon Dioxide (21-32) mEq/L Anion Gap (5-15) BUN (7-18) mg/dL Creatinine (0.55-1.02) mg/dL Est Cr Clr Drug Dosing mL/min Estimated GFR (MDRD) (>60) mL/min BUN/Creatinine Ratio (14-18) Glucose (74-106) mg/dL Lactic Acid 1.1 (0.4-2.0) mmol/L Calcium (8.5-10.1) mg/dL Phosphorus (2.6-4.7) mg/dL Magnesium (1.8-2.4) mg/dl Ferritin 384 H (8-252) ng/ml Total Bilirubin (0.2-1.0) mg/dL AST (15-37) U/L ALT (14-59) U/L Alkaline Phosphatase (46-116) U/L Lactate Dehydrogenase (81-234) U/L Troponin I (0.00-0.056) ng/mL C-Reactive Protein (<1.0) mg/dL Total Protein (6.4-8.2) g/dl Albumin (3.4-5.0) g/dl Globulin gm/dL Albumin/Globulin Ratio (1-2) Meds: Medications Generic Name Dose Route Start Last Admin Trade Name Ildefonsoq PRN Reason Stop Dose Admin Sodium Chloride 1,000 mls @ 1,000 mls/hr 07/21/20 17:30 07/21/20 17:43 Normal Saline IV 1,000 mls/hr .BOLUS ROXANNA Administration Sodium Chloride 100 mls @ 60 mls/hr 07/21/20 18:45 07/21/20 19:35 Normal Saline IV 60 mls/hr ASDIRECTED ROXANNA Administration Sodium Chloride 10 ml 07/21/20 17:21 07/21/20 17:43 Saline Flush FLUSH 10 ml ASDIRECTED PRN Administration Keep Vein Open Sodium Chloride 10 ml 07/21/20 18:43 07/21/20 19:35 Saline Flush FLUSH 10 ml ONETIME PRN Administration Keep Vein Open Discontinued Medications Generic Name Dose Route Start Last Admin Trade Name Ildefonsoq PRN Reason Stop Dose Admin Aspirin 324 mg 07/21/20 17:21 07/21/20 17:42 Aspirin PO 07/21/20 17:22 324 mg ONETIME ONE Administration Diphenhydramine HCl 50 mg 07/21/20 18:30 07/21/20 18:37 Benadryl IVPUSH 07/21/20 18:31 50 mg ONETIME ONE Administration Iopamidol 100 ml 07/21/20 18:43 07/21/20 19:35 Isovue-370 (76%) IVPUSH 07/21/20 18:44 100 ml ONETIME ONE Administration Methylprednisolone Sodium Succinate 125 mg 07/21/20 18:29 07/21/20 18:47 Solu-Medrol IVPUSH 07/21/20 18:30 125 mg ONETIME ONE Administration - Re-Assessments/Exams Free Text/Narrative Re-Assessment/Exam: 07/21/20 19:35 I ordered an IV NS 1L bolus, EKG, CXR, and labs. I also checked her for COVID 19. Her EKG shows a sinus tachcyardia with some ST elevation in the anterior leads seen on prior EKG. Her Hgb was elevated at 11.98. Her Hgb was elevated at 16.8. Her D-dimer was elevated at 2.19. I ordered a CT angio of her chest. Her Na was low at 131. Her anion gap is elevated at 20.1. Her creatinine is elevated at 1.1. Her ferritin is elevated at 384. Her ALT is elevated at 62. Her troponin is negative. I am waiting for the CT angio of her chest. 07/21/20 20:[address] angio showed no acute pulmonary embolic disease. No acute abnormality within the chest. I will discharge her home. Departure - Departure Time of Disposition: 20:10 Disposition: Home, Self-Care 01 Condition: Good Clinical Impression: Atypical chest pain, Dehydration, Crohn's disease - Discharge Information *PRESCRIPTION DRUG MONITORING PROGRAM REVIEWED*: Not Applicable *COPY OF PRESCRIPTION DRUG MONITORING REPORT IN PATIENT JOHN: Not Applicable Referrals: Gail Childs PA-C [Primary Care Provider] - 1 Week Forms: ED Department Discharge Additional Instructions: Follow up with your provider as scheduled. Please return if you are worse. Sepsis Event Note (ED) - Evaluation Sepsis Screening Result: No Definite Risk - Focused Exam Vital Signs: Vital Signs Temp Pulse Resp BP Pulse Ox 07/21/20 16:56 97 F 117 H 13 133/97 H 95 - My Orders Last 24 Hours: My Active Orders 07/21/20 17:05 EKG 12 Lead [EKG Documentation Completion] [RC] STAT 07/21/20 17:21 Cardiac Monitoring [RC] . DIRECTED Sodium Chloride 0.9% [Saline Flush] 10 ml FLUSH ASDIRECTED PRN Peripheral IV Insertion Adult [OM.PC] Stat 07/21/20 17:22 Peripheral IV Care [RC] . DIRECTED Chest 1V Frontal [CR] Stat 07/21/20 17:30 Sodium Chloride 0.9% [Normal Saline] 1,000 ml IV .BOLUS 07/21/20 18:17 Ang Chest [CT] Stat 07/21/20 18:43 Sodium Chloride 0.9% [Saline Flush] 10 ml FLUSH ONETIME PRN 07/21/20 18:45 Sodium Chloride 0.9% [Normal Saline] 100 ml IV ASDIRECTED 07/21/20 19:45 CORONAVIRUS COVID-19 PCR PHL Stat - Assessment/Plan Last 24 Hours: My Active Orders 07/21/20 17:05 EKG 12 Lead [EKG Documentation Completion] [RC] STAT 07/21/20 17:21 Cardiac Monitoring [RC] . DIRECTED Sodium Chloride 0.9% [Saline Flush] 10 ml FLUSH ASDIRECTED PRN Peripheral IV Insertion Adult [OM.PC] Stat 07/21/20 17:22 Peripheral IV Care [RC] . DIRECTED Chest 1V Frontal [CR] Stat 07/21/20 17:30 Sodium Chloride 0.9% [Normal Saline] 1,000 ml IV .BOLUS 07/21/20 18:17 Ang Chest [CT] Stat 07/21/20 18:43 Sodium Chloride 0.9% [Saline Flush] 10 ml FLUSH ONETIME PRN 07/21/20 18:45 Sodium Chloride 0.9% [Normal Saline] 100 ml IV ASDIRECTED 07/21/20 19:45 CORONAVIRUS COVID-19 PCR PHL Stat
--- NOTE | 2020-08-20 08:48 | CT ---
PROCEDURE INFORMATION: Exam: CT Angiography Chest With Contrast Exam date and time: 07/21/2020 6:54 PM Age: 49 years old Clinical indication: Pain and abnormal findings; Abnormal diagnostic tests; Elevated d-dimer; Chest pain; Type not specified TECHNIQUE: Imaging protocol: Computed tomographic angiography of the chest with intravenous contrast. 3D rendering (Not supervised by radiologist): MIP and/or 3D reconstructed images were created by the technologist. COMPARISON: CT Chest wo Cont 05/26/2016 7:56 AM FINDINGS: Pulmonary arteries: Normal. No pulmonary emboli. Aorta: Unremarkable. No aortic aneurysm. No aortic dissection. Thyroid: Bilateral thyroid nodules, the largest is on the left measuring 9 mm x 12 mm. Given the size and appearance of the lesions, follow-up is not required. Lungs: Unremarkable. No consolidation. No masses. Pleural space: Pleural based nodule in the medial right upper lobe measures 1.1 x 1.5 cm. It has increased in size since the prior study, where it measured 0.5 x 1.2 cm. Heart: Unremarkable. No cardiomegaly. No pericardial effusion. Lymph nodes: Unremarkable. No enlarged lymph nodes. Kidneys and ureters: Cyst in the lateral upper pole cortex of the left kidney measures 2.7 x 2.2 cm. There are peripheral foci of calcification. The appearance is similar to the study performed 05/26/2016. Bones/joints: Unremarkable. No acute fracture. Soft tissues: Unremarkable. IMPRESSION: 1. No evidence for acute pulmonary embolic disease. 2. No acute abnormality within the chest. 3. Pleural based nodule in the medial right upper lobe is has increased in size since 2016, but otherwise demonstrates benign features. This is likely a pleural plaque. If clinically indicated, PET-CT could be performed for further assessment. 4. Stable appearing left renal cyst containing peripheral calcifications, follow-up not required. COMMENTS: 1. Consistent with the [employer]'s Incidental Findings Committee white paper (J Am Kenny Radiol 2015): In patients aged 35 years and older with an incidental thyroid nodule equal to or greater than 1.[address], MRI or extrathyroidal US, further evaluation with dedicated thyroid US is recommended for patients with normal life expectancy and without comorbidities. For smaller nodules without suspicious features, no further evaluation or follow up is recommended. 2. Consistent with the [employer]'s Incidental Findings Committee white paper (J Am Kenny Radiol 2018): Any incidental renal lesion less than 1 cm or classified as too small to characterize, or any incidental cystic renal lesion characterized as simple- appearing, is likely benign. No follow-up imaging is recommended for these lesions per consensus recommendations based on imaging criteria. Thank you for allowing us to participate in the care of your patient. Dictated and Authenticated by: Venkata De La Fuente MD 08/19/2020 8:32 PM Central Time ([place] & [place]) ESTEL[place]
--- NOTE | 2020-08-22 13:18 | CR ---
PROCEDURE INFORMATION: Exam: XR Chest, 1 View Exam date and time: 07/21/2020 5:10 PM Age: 49 years old Clinical indication: Chest pain; Type not specified TECHNIQUE: Imaging protocol: XR of the chest Views: 1 view. COMPARISON: DX Chest 2V 02/07/2017 4:26 PM FINDINGS: Lungs: Unremarkable. No consolidation. Pleural space: Unremarkable. No pleural effusion. No pneumothorax. Heart/Mediastinum: Unremarkable. No cardiomegaly. Bones/joints: Unremarkable. IMPRESSION: No acute findings. Thank you for allowing us to participate in the care of your patient. Dictated and Authenticated by: Ignacio White MD 08/22/2020 1:11 PM Central Time ([place] & [place]) [place]
== END 2020-07-21 20:15 | disposition home or self-care (01) ==
LOC: JD.ED 16:19
DX: E86.0 Dehydration (principal); K50.90 Crohn's disease, unspecified, without complications; R07.89 Other chest pain; I10 Essential (primary) hypertension; Z91.041 Radiographic dye allergy status; Z88.8 Allergy status to other drugs, medicaments and biological substances; Z88.2 Allergy status to sulfonamides; Z79.899 Other long term (current) drug therapy; Z11.59 Encounter for screening for other viral diseases
CPT/HCPCS: 36415; 71045; 71275; 80053; 82728; 83605; 83615; 83735; 84100; 84484; 85025; 85379; 85610; 85730; 86140; 87635; 93005; 96361; 96374; 96375; 99285; A9270; J1200; J2930; J7030; J7050; Q9967; 93010; 99284; U0002

== ENCOUNTER 2023-01-23 22:15 | Emergency (ER) | payer OTHER, BC ==
[2023-01-23 22:29] VITALS: BP 156/96; PULSE 72
[2023-01-23] MEDS ORDERED: Lactated Ringers 1,000 ML IV SCH (22:45)
[2023-01-23] MEDS ORDERED: Ondansetron 4 MG/2 ML SDV IVPUSH ONE ×2 (22:59→23:04)
[2023-01-23] MEDS ORDERED: HYDROmorphone 0.5 MG/0.5 ML Syringe IVPUSH ONE ×2 (22:59→23:44)
[2023-01-24 00:24] LABS: CORONAVIRUS COVID-19 NAA NEGATIVE (NEGATIVE)
[2023-01-24] MEDS ORDERED: HYDROmorphone 0.5 MG/0.5 ML Syringe IVPUSH ONE (02:48)
== END 2023-01-24 03:01 | disposition home or self-care (01) ==
LOC: JD.ED 22:15
DX: K50.90 Crohn's disease, unspecified, without complications (principal); I10 Essential (primary) hypertension; Z91.041 Radiographic dye allergy status; Z88.2 Allergy status to sulfonamides; Z88.8 Allergy status to other drugs, medicaments and biological substances; Z20.822 Contact with and (suspected) exposure to COVID-19
CPT/HCPCS: 0240U; 36415; 80053; 81001; 83605; 83690; 85025; 96361; 96374; 96375; 96376; 99284; J1170; J2405; J7120; 99283

== ENCOUNTER 2023-05-01 11:07 | Emergency (ER) | payer BC, OTHER ==
[2023-05-01 11:18] VITALS: BP 161/97; PULSE 94
[2023-05-01] MEDS ORDERED: Lidocaine 1% 10 ML MDV INJECT ONE (13:05)
== END 2023-05-01 14:38 | disposition home or self-care (01) ==
LOC: JD.ED 11:07
DX: L03.221 Cellulitis of neck (principal); I10 Essential (primary) hypertension; Z88.2 Allergy status to sulfonamides; Z91.041 Radiographic dye allergy status; Z91.048 Other nonmedicinal substance allergy status
CPT/HCPCS: 10060; 99283; J3490

== ENCOUNTER 2023-05-31 09:23 | Day surgery (SDC) | payer BC ==
[2023-05-31] MEDS ORDERED: Sodium Chloride 0.9% 10 ML Syringe FLUSH PRN (10:23)
[2023-05-31] MEDS ORDERED: Lactated Ringers 1,000 ML IV SCH (10:30)
[2023-05-31] MEDS ORDERED: Dexmedetomidine 200 MCG/2 ML SDV ONE (11:00)
[2023-05-31] MEDS ORDERED: ceFAZolin 2 GM Vial ONE (11:00)
[2023-05-31] MEDS ORDERED: fentaNYL 100 MCG/2 ML SDV IVPUSH PRN (11:02)
[2023-05-31] MEDS ORDERED: Ondansetron 4 MG/2 ML SDV IVPUSH PRN (11:02)
[2023-05-31] MEDS ORDERED: Bupivacaine 0.5%/EPINEPHrine 1:200,000 50 ML MDV ONE (11:05)
[2023-05-31] MEDS ORDERED: Lidocaine 1% 2 ML ONE (11:07)
[2023-05-31] MEDS ORDERED: Midazolam 1 MG/ML 2 ML SDV ONE (11:07)
[2023-05-31] MEDS ORDERED: Propofol 200 MG/20 ML SDV ONE ×3 (11:07→11:51)
[2023-05-31] MEDS ORDERED: hydrALAZINE 20 MG/ML SDV ONE (11:31)
[2023-05-31] MEDS ORDERED: fentaNYL 100 MCG/2 ML SDV ONE (11:52)
[2023-05-31 13:26] VITALS: BP 112/74; PULSE 74
[2023-05-31] MEDS ORDERED: Sodium Chloride 0.9% 10 ML Syringe FLUSH SCH (21:00)
== END 2023-05-31 13:12 | disposition home or self-care (01) ==
LOC: JD.SDS 09:23
PROVIDERS: ATTEND Surgery
DX: L72.0 Epidermal cyst (principal); L90.5 Scar conditions and fibrosis of skin; L08.9 Local infection of the skin and subcutaneous tissue, unspecified; F41.9 Anxiety disorder, unspecified; D22.9 Melanocytic nevi, unspecified; K50.90 Crohn's disease, unspecified, without complications; R63.0 Anorexia; E86.0 Dehydration; D64.9 Anemia, unspecified; I10 Essential (primary) hypertension; D51.9 Vitamin B12 deficiency anemia, unspecified; Z90.49 Acquired absence of other specified parts of digestive tract; Z91.041 Radiographic dye allergy status; Z88.2 Allergy status to sulfonamides; Z88.8 Allergy status to other drugs, medicaments and biological substances; Z79.899 Other long term (current) drug therapy; E53.9 Vitamin B deficiency, unspecified; E55.9 Vitamin D deficiency, unspecified; F32.A Depression, unspecified; Z68.38 Body mass index [BMI] 38.0-38.9, adult
CPT/HCPCS: 00300; J0360; J0690; J2250; J2704; J3010; J3490; J7120

== ENCOUNTER 2023-07-15 19:47 | Emergency (ER) | payer OTHER, BC ==
[2023-07-15] MEDS ORDERED: Sodium Chloride 0.9% 10 ML Syringe FLUSH PRN (20:46)
[2023-07-15] MEDS ORDERED: Ondansetron 4 MG/2 ML SDV IVPUSH ONE (20:46)
[2023-07-15] MEDS ORDERED: HYDROmorphone 0.5 MG/0.5 ML Syringe IVPUSH ONE ×2 (20:46→22:02)
[2023-07-15 20:52] LABS: BASOPHILS PERCENT AUTO 0.3 % (0.0-1.0); EOSINOPHILS ABSOLUTE AUTO 0.1 K/mm3 (0.0-0.4); EOSINOPHILS PERCENT AUTO 1.9 % (0.0-6.0); HEMATOCRIT 40.8 % (37.0-47.0); HEMOGLOBIN 14.2 gm/dl (12.0-16.0); IMMATURE GRAN ABSOLUTE AUTO 0.02 K/mm3 (0.00-0.05); IMMATURE GRAN PERCENT AUTO 0.3 % (0.0-0.4); LYMPHOCYTES ABSOLUTE AUTO 1.1 K/mm3 (1.0-4.8); LYMPHOCYTES PERCENT AUTO 14.8 % (24.0-44.0); MEAN CORPUSCULAR HEMOGLOBIN 29.2 pg (28.0-32.0); MEAN CORPUSCULAR HGB CONC 34.8 g/dl (32.0-36.0); MEAN PLATELET VOLUME 8.4 fl (9.4-12.3); MONOCYTES ABSOLUTE AUTO 0.4 K/mm3 (0.0-0.8); MONOCYTES PERCENT AUTO 5.6 % (0.0-8.0); NEUTROPHILS ABSOLUTE AUTO 5.6 K/mm3 (1.8-7.7); NEUTROPHILS PERCENT AUTO 77.1 % (41.0-71.0); PLATELET COUNT,PLT 238 K/mm3 (150-400); RED BLOOD CELL COUNT 4.86 M/mm3 (4.10-5.30); WHITE BLOOD CELL COUNT,WBC 7.31 K/mm3 (3.9-11.3)
[2023-07-15] MEDS ORDERED: Sodium Chloride 0.9% 1,000 ML IV SCH (21:00)
[2023-07-15 21:13] LABS: A/G RATIO 0.9 (1-2); ALBUMIN 3.7 g/dl (3.4-5.0); ALKALINE PHOSPHATASE 169 U/L (46-116); ANION GAP 12.8 (5-15); ASPARTATE AMNIOTRANSFERASE,AST 35 U/L (15-37); BILIRUBIN TOTAL 0.8 mg/dL (0.2-1.0); BLOOD UREA NITROGEN,BUN 10 mg/dL (7-18); BUN/CREATININE RATIO 12.5 (14-18); C-REACTIVE PROTEIN <0.2 mg/dL (<1.0); CARBON DIOXIDE,CO2 24 mEq/L (21-32); CHLORIDE,CL 104 mEq/L (98-107); CREATININE 0.8 mg/dL (0.55-1.02); EST CRCL DRUG DOSING (CG) 77.01 mL/min; ESTIMATED GFR 89 mL/min (>60); GLUCOSE RANDOM 104 mg/dL (70-99); POTASSIUM,K 3.8 mEq/L (3.5-5.1); PROTEIN TOTAL,TP 7.8 g/dl (6.4-8.2); SODIUM,NA 137 mEq/L (136-145)
[2023-07-15] MEDS ORDERED: Naloxone 0.4 MG/ML SDV IVPUSH PRN (22:02)
[2023-07-15] MEDS ORDERED: Acetaminophen 325 MG Tab PO ONE (22:02)
[2023-07-15 22:20] LABS: APPEARANCE,URINE CLEAR (Clear); BILIRUBIN,URINE NEGATIVE (Negative); COLOR,URINE YELLOW (Yellow); GLUCOSE,URINE NEGATIVE (Negative); KETONES,URINE NEGATIVE (Negative); LEUKOCYTE ESTERASE,URINE NEGATIVE (Negative); NITRITE,URINE NEGATIVE (Negative); OCCULT BLOOD,URINE NEGATIVE (Negative); PROTEIN,URINE NEGATIVE (Negative); UROBILINOGEN,URINE 0.2 (0.2-1.0)
[2023-07-15 22:39] LABS: ALANINE AMINOTRANSFERASE,ALT 58 U/L (14-59)
[2023-07-15 23:01] LABS: BACTERIA,URINE FEW /hpf (FEW); MUCUS,URINE FEW /hpf (FEW); RBC,URINE 0-5 /hpf (0-5); WBC,URINE 0-5 /hpf (0-5)
[2023-07-15 23:12] LABS: CORONAVIRUS COVID-19 NAA NEGATIVE (NEGATIVE); INFLUENZA A NAA NEGATIVE (NEGATIVE)
[2023-07-15] MEDS ORDERED: Ketorolac 30 MG/ML SDV IVPUSH ONE (23:22)
[2023-07-16 00:09] VITALS: BP 150/90; PULSE 74
== END 2023-07-16 00:23 | disposition home or self-care (01) ==
LOC: JD.ED 19:47
DX: R51.9 Headache, unspecified (principal); I10 Essential (primary) hypertension; M54.2 Cervicalgia; Z20.822 Contact with and (suspected) exposure to COVID-19; Z79.899 Other long term (current) drug therapy; Z88.2 Allergy status to sulfonamides; Z91.041 Radiographic dye allergy status; Z88.8 Allergy status to other drugs, medicaments and biological substances
CPT/HCPCS: 0240U; 36415; 70450; 80053; 81001; 85025; 86140; 96361; 96374; 96375; 96376; 99284; A9270; J1170; J1885; J2405; J3490; J7030

== ENCOUNTER 2024-07-19 03:38 | Inpatient (IN) | payer BC, OTHER ==
[2024-07-19] MEDS: Metoclopramide 10 MG/2 ML SDV IVPUSH ONE (04:37)
[2024-07-19] MEDS: Sodium Chloride 0.9% 1,000 ML IV SCH (04:37)
[2024-07-19] MEDS: diphenhydrAMINE 50 MG/ML SDV IVPUSH ONE (04:47)
[2024-07-19] MEDS: HYDROmorphone 1 MG/ML Syringe IVPUSH ONE (04:48)
[2024-07-19] MEDS: Acetaminophen 325 MG Tab PO ONE ×2 (04:49→07:54)
[2024-07-19 04:56] LABS: BASOPHILS PERCENT AUTO 0.4 % (0.0-1.0); EOSINOPHILS PERCENT AUTO 0.2 % (0.0-6.0); HEMATOCRIT 41.5 % (37.0-47.0); HEMOGLOBIN 14.1 gm/dl (12.0-16.0); IMMATURE GRAN ABSOLUTE AUTO 0.02 K/mm3 (0.00-0.05); IMMATURE GRAN PERCENT AUTO 0.4 % (0.0-0.4); LYMPHOCYTES ABSOLUTE AUTO 0.5 K/mm3 (1.0-4.8); LYMPHOCYTES PERCENT AUTO 9.3 % (24.0-44.0); MEAN CORPUSCULAR HEMOGLOBIN 29.1 pg (28.0-32.0); MEAN CORPUSCULAR VOLUME 85.6 fl (83.0-99.0); MEAN PLATELET VOLUME 8.8 fl (9.4-12.3); MONOCYTES ABSOLUTE AUTO 0.4 K/mm3 (0.0-0.8); MONOCYTES PERCENT AUTO 7.5 % (0.0-8.0); NEUTROPHILS ABSOLUTE AUTO 4.4 K/mm3 (1.8-7.7); NEUTROPHILS PERCENT AUTO 82.2 % (41.0-71.0); PLATELET COUNT,PLT 190 K/mm3 (150-400); RED BLOOD CELL COUNT 4.85 M/mm3 (4.10-5.30); WHITE BLOOD CELL COUNT,WBC 5.36 K/mm3 (3.9-11.3)
[2024-07-19 05:22] LABS: APPEARANCE,URINE CLEAR (Clear); BILIRUBIN,URINE NEGATIVE (Negative); COLOR,URINE YELLOW (Yellow); GLUCOSE,URINE NEGATIVE (Negative); KETONES,URINE NEGATIVE (Negative); LEUKOCYTE ESTERASE,URINE NEGATIVE (Negative); NITRITE,URINE NEGATIVE (Negative); OCCULT BLOOD,URINE TRACE-LYSED (Negative); PROTEIN,URINE NEGATIVE (Negative); UROBILINOGEN,URINE 0.2 (0.2-1.0)
[2024-07-19 05:29] LABS: LACTIC ACID 1.2 mmol/L (0.4-2.0)
[2024-07-19 05:35] LABS: A/G RATIO 0.9 (1-2); ALBUMIN 3.4 g/dl (3.4-5.0); ANION GAP 14.6 (5-15); BUN/CREATININE RATIO 8.9 (14-18); C-REACTIVE PROTEIN 1.94 mg/dL (<0.30); CALCIUM 8.7 mg/dL (8.5-10.1); CREATININE 0.9 mg/dL (0.55-1.02); EST CRCL DRUG DOSING (CG) 67.67 mL/min; MAGNESIUM 1.3 mg/dL (1.8-2.4); POTASSIUM,K 3.6 mEq/L (3.5-5.1); PROTEIN TOTAL,TP 7.2 g/dl (6.4-8.2)
[2024-07-19 05:54] LABS: CORONAVIRUS COVID-19 NAA NEGATIVE (NEGATIVE); INFLUENZA A NAA NEGATIVE (NEGATIVE); RESPIRATORY SYNCYTIAL VIR NAA NEGATIVE (NEGATIVE)
[2024-07-19 05:59] LABS: BACTERIA,URINE RARE /hpf (FEW); EPITHELIAL CELLS,URINE 0-5 /hpf (0-5); MUCUS,URINE FEW /hpf (FEW); RBC,URINE NOT SEEN /hpf (0-5); WBC,URINE 0-5 /hpf (0-5)
[2024-07-19] MEDS: Magnesium Sulfate/Water Premix 4 GM in Premix Bag 1 BAG IV ONE (06:20)
[2024-07-19] MEDS: HYDROmorphone 0.5 MG/0.5 ML Syringe IVPUSH ONE (07:54)
[2024-07-19] MEDS ORDERED: Non-Formulary Medication 1 Each (Hydrocodone/Acetaminophen 1 EACH Tablet) PO PRN (08:53)
[2024-07-19] MEDS ORDERED: Loperamide 2 MG Cap PO PRN (08:53)
[2024-07-19] MEDS ORDERED: ALPRAZolam 0.5 MG Tab PO PRN (08:53)
[2024-07-19] MEDS ORDERED: CYCLOBENZAPRINE 5 MG PO PRN (08:53)
[2024-07-19] MEDS ORDERED: traMADol 50 MG Tab PO PRN ×2 (08:53→08:59)
[2024-07-19] MEDS ORDERED: Cyclobenzaprine 10 MG Tab PO PRN (08:57)
[2024-07-19] MEDS ORDERED: Sodium Chloride 0.9% 1,000 ML IV SCH (10:15)
[2024-07-19] MEDS: Enoxaparin 40 MG/0.4 ML Syringe SUBCUT SCH (10:47)
[2024-07-19] MEDS: Atropine/Diphenoxylate 0.025-2.5 MG Tab PO SCH (10:48)
[2024-07-19] MEDS: NS + KCl 20mEq/L 1,000 ML IV SCH (10:48)
[2024-07-19] MEDS: Acetaminophen/HYDROcodone 325-5 MG Tab PO PRN (11:38)
[2024-07-19] MEDS: Sodium Phosphate 15 MMOLE in Sodium Chloride 0.9% 250 ML IV ONE (11:59)
[2024-07-19] MEDS: Acetaminophen 325 MG Tab PO PRN (12:31)
[2024-07-19] MEDS: HYDROmorphone 0.5 MG/0.5 ML Syringe IVPUSH PRN (17:21)
[2024-07-19] MEDS ORDERED: Sodium Chloride 0.9% 10 ML Syringe FLUSH PRN (18:06)
[2024-07-19] MEDS: cefTRIAXone 2 GM in Sodium Chloride 0.9% 100 ML IV SCH (20:15)
[2024-07-19] MEDS: VANCOmycin 2 GM/400 ML 2 GM in Premix Bag 1 BAG IV ONE (20:16)
[2024-07-19] MEDS: Ondansetron 4 MG/2 ML SDV IV PRN (21:38)
[2024-07-19] MEDS: Sodium Chloride 0.9% 10 ML Syringe FLUSH SCH (21:43)
[2024-07-19] MEDS: AZATHIOPRINE 50 MG PO SCH (22:14)
[2024-07-19] MEDS: LEFLUNOMIDE 20 MG PO SCH (22:15)
[2024-07-19] MEDS: Ibuprofen 400 MG Tab PO SCH (22:35)
[2024-07-20 06:25] LABS: BASOPHILS PERCENT AUTO 0.2 % (0.0-1.0); HEMATOCRIT 40.5 % (37.0-47.0); HEMOGLOBIN 13.5 gm/dl (12.0-16.0); IMMATURE GRAN ABSOLUTE AUTO 0.03 K/mm3 (0.00-0.05); IMMATURE GRAN PERCENT AUTO 0.7 % (0.0-0.4); LYMPHOCYTES ABSOLUTE AUTO 0.5 K/mm3 (1.0-4.8); LYMPHOCYTES PERCENT AUTO 11.9 % (24.0-44.0); MEAN CORPUSCULAR HEMOGLOBIN 29.3 pg (28.0-32.0); MEAN CORPUSCULAR HGB CONC 33.3 g/dl (32.0-36.0); MONOCYTES ABSOLUTE AUTO 0.4 K/mm3 (0.0-0.8); MONOCYTES PERCENT AUTO 8.1 % (0.0-8.0); NEUTROPHILS ABSOLUTE AUTO 3.5 K/mm3 (1.8-7.7); NEUTROPHILS PERCENT AUTO 79.1 % (41.0-71.0); PLATELET COUNT,PLT 137 K/mm3 (150-400); WHITE BLOOD CELL COUNT,WBC 4.45 K/mm3 (3.9-11.3)
[2024-07-20 07:35] LABS: A/G RATIO 0.8 (1-2); ALBUMIN 2.9 g/dl (3.4-5.0); ANION GAP 14.6 (5-15); BUN/CREATININE RATIO 5.6 (14-18); C-REACTIVE PROTEIN 7.21 mg/dL (<0.30); CALCIUM 8.1 mg/dL (8.5-10.1); CREATININE 0.9 mg/dL (0.55-1.02); EST CRCL DRUG DOSING (CG) 67.67 mL/min; MAGNESIUM 2.1 mg/dL (1.8-2.4); POTASSIUM,K 3.6 mEq/L (3.5-5.1); PROTEIN TOTAL,TP 6.7 g/dl (6.4-8.2)
[2024-07-20] MEDS: VANCOmycin 1.25 GM/250 ML 1.25 GM in Premix Bag 1 BAG IV SCH (08:58)
[2024-07-20] MEDS: Ibuprofen 400 MG Tab PO PRN (12:50)
[2024-07-20] MEDS: ceFAZolin 2 GM in Sodium Chloride 0.9% 50 ML IV SCH (16:23)
[2024-07-20] MEDS: Lidocaine 1% with EPINEPHrine 1:100,000 20 ML MDV INJECT ONE (16:27)
[2024-07-21 05:37] LABS: BASOPHILS PERCENT AUTO 0.2 % (0.0-1.0); EOSINOPHILS ABSOLUTE AUTO 0.2 K/mm3 (0.0-0.4); EOSINOPHILS PERCENT AUTO 5.8 % (0.0-6.0); HEMATOCRIT 39.6 % (37.0-47.0); HEMOGLOBIN 13.1 gm/dl (12.0-16.0); IMMATURE GRAN ABSOLUTE AUTO 0.02 K/mm3 (0.00-0.05); IMMATURE GRAN PERCENT AUTO 0.5 % (0.0-0.4); LYMPHOCYTES ABSOLUTE AUTO 0.9 K/mm3 (1.0-4.8); LYMPHOCYTES PERCENT AUTO 22.4 % (24.0-44.0); MEAN CORPUSCULAR HEMOGLOBIN 29.2 pg (28.0-32.0); MEAN CORPUSCULAR HGB CONC 33.1 g/dl (32.0-36.0); MEAN CORPUSCULAR VOLUME 88.4 fl (83.0-99.0); MONOCYTES ABSOLUTE AUTO 0.6 K/mm3 (0.0-0.8); MONOCYTES PERCENT AUTO 14.7 % (0.0-8.0); NEUTROPHILS ABSOLUTE AUTO 2.3 K/mm3 (1.8-7.7); NEUTROPHILS PERCENT AUTO 56.4 % (41.0-71.0); PLATELET COUNT,PLT 140 K/mm3 (150-400); RED BLOOD CELL COUNT 4.48 M/mm3 (4.10-5.30); WHITE BLOOD CELL COUNT,WBC 4.15 K/mm3 (3.9-11.3)
[2024-07-21 05:59] LABS: A/G RATIO 0.7 (1-2); ALBUMIN 2.8 g/dl (3.4-5.0); BILIRUBIN TOTAL 0.7 mg/dL (0.2-1.0); C-REACTIVE PROTEIN 6.94 mg/dL (<0.30); CALCIUM 8.3 mg/dL (8.5-10.1); CREATININE 0.7 mg/dL (0.55-1.02); EST CRCL DRUG DOSING (CG) 87.01 mL/min; PROTEIN TOTAL,TP 6.6 g/dl (6.4-8.2)
[2024-07-21 06:15] LABS: ANION GAP 12.3 (5-15)
[2024-07-21 06:16] LABS: POTASSIUM,K 4.3 mEq/L (3.5-5.1)
[2024-07-21] MEDS: Metoclopramide 10 MG Tab PO ONE (11:10)
[2024-07-21] MEDS: Sodium Chloride 0.9% 1,000 ML IV SCH (16:23)
[2024-07-21] MEDS: Metoclopramide 10 MG/2 ML SDV IVPUSH PRN (22:13)
[2024-07-22 05:49] LABS: BASOPHILS PERCENT AUTO 0.6 % (0.0-1.0); EOSINOPHILS ABSOLUTE AUTO 0.2 K/mm3 (0.0-0.4); EOSINOPHILS PERCENT AUTO 4.5 % (0.0-6.0); HEMATOCRIT 40.3 % (37.0-47.0); HEMOGLOBIN 13.6 gm/dl (12.0-16.0); IMMATURE GRAN ABSOLUTE AUTO 0.02 K/mm3 (0.00-0.05); IMMATURE GRAN PERCENT AUTO 0.4 % (0.0-0.4); LYMPHOCYTES ABSOLUTE AUTO 1.5 K/mm3 (1.0-4.8); MEAN CORPUSCULAR HEMOGLOBIN 28.9 pg (28.0-32.0); MEAN CORPUSCULAR HGB CONC 33.7 g/dl (32.0-36.0); MEAN CORPUSCULAR VOLUME 85.7 fl (83.0-99.0); MEAN PLATELET VOLUME 8.7 fl (9.4-12.3); MONOCYTES ABSOLUTE AUTO 0.6 K/mm3 (0.0-0.8); MONOCYTES PERCENT AUTO 11.1 % (0.0-8.0); NEUTROPHILS ABSOLUTE AUTO 2.9 K/mm3 (1.8-7.7); NEUTROPHILS PERCENT AUTO 54.4 % (41.0-71.0); PLATELET COUNT,PLT 199 K/mm3 (150-400); WHITE BLOOD CELL COUNT,WBC 5.31 K/mm3 (3.9-11.3)
[2024-07-22 06:08] LABS: A/G RATIO 0.7 (1-2); BILIRUBIN TOTAL 0.7 mg/dL (0.2-1.0); BUN/CREATININE RATIO 11.4 (14-18); C-REACTIVE PROTEIN 3.42 mg/dL (<0.30); CALCIUM 8.6 mg/dL (8.5-10.1); CREATININE 0.7 mg/dL (0.55-1.02); EST CRCL DRUG DOSING (CG) 87.01 mL/min; PROTEIN TOTAL,TP 7.1 g/dl (6.4-8.2)
[2024-07-22] MEDS ORDERED: ADALIMUMAB 20 MG/0.4 ML SQ SCH (08:53)
[2024-07-22] MEDS: LEFLUNOMIDE 20 MG PO SCH (15:43)
[2024-07-22] MEDS: VORTIOXETINE HYDROBROMIDE PO SCH (15:43)
[2024-07-23 05:56] LABS: BASOPHILS PERCENT AUTO 0.4 % (0.0-1.0); EOSINOPHILS ABSOLUTE AUTO 0.3 K/mm3 (0.0-0.4); EOSINOPHILS PERCENT AUTO 4.8 % (0.0-6.0); HEMATOCRIT 41.1 % (37.0-47.0); HEMOGLOBIN 13.8 gm/dl (12.0-16.0); IMMATURE GRAN ABSOLUTE AUTO 0.02 K/mm3 (0.00-0.05); IMMATURE GRAN PERCENT AUTO 0.4 % (0.0-0.4); LYMPHOCYTES ABSOLUTE AUTO 1.7 K/mm3 (1.0-4.8); MEAN CORPUSCULAR HEMOGLOBIN 28.7 pg (28.0-32.0); MEAN CORPUSCULAR HGB CONC 33.6 g/dl (32.0-36.0); MEAN CORPUSCULAR VOLUME 85.4 fl (83.0-99.0); MEAN PLATELET VOLUME 8.8 fl (9.4-12.3); MONOCYTES ABSOLUTE AUTO 0.5 K/mm3 (0.0-0.8); MONOCYTES PERCENT AUTO 9.6 % (0.0-8.0); NEUTROPHILS ABSOLUTE AUTO 3.1 K/mm3 (1.8-7.7); NEUTROPHILS PERCENT AUTO 54.8 % (41.0-71.0); PLATELET COUNT,PLT 214 K/mm3 (150-400); RED BLOOD CELL COUNT 4.81 M/mm3 (4.10-5.30); WHITE BLOOD CELL COUNT,WBC 5.63 K/mm3 (3.9-11.3)
[2024-07-23 06:12] LABS: A/G RATIO 0.7 (1-2); ANION GAP 12.7 (5-15); BILIRUBIN TOTAL 0.7 mg/dL (0.2-1.0); BUN/CREATININE RATIO 8.8 (14-18); CALCIUM 9.1 mg/dL (8.5-10.1); CREATININE 0.8 mg/dL (0.55-1.02); EST CRCL DRUG DOSING (CG) 76.13 mL/min; POTASSIUM,K 3.7 mEq/L (3.5-5.1); PROTEIN TOTAL,TP 7.1 g/dl (6.4-8.2)
[2024-07-23] MEDS: ceFAZolin 2 GM in Sodium Chloride 0.9% 100 ML IV SCH (15:58)
[2024-07-24] MEDS: LORazepam 2 MG/ML SDV IVPUSH ONE (12:42)
[2024-07-24] MEDS: Ondansetron 4 MG/2 ML SDV IVPUSH ONE (12:43)
[2024-07-24] MEDS: Midazolam 1 MG/ML 2 ML SDV IVPUSH ONE (13:21)
[2024-07-24] MEDS: Morphine 2 MG/ML SYRINGE IVPUSH ONE (13:34)
[2024-07-24] MEDS: ceFAZolin 2 GM in Sodium Chloride 0.9% 100 ML IV ONE (20:11)
[2024-07-24 22:43] VITALS: BP 157/87; PULSE 70
== END 2024-07-24 21:42 | disposition home or self-care (01) | DRG 720 ==
LOC: JD.ED 03:38 → JD.MS 09:29 → OBSVTOIN 17:58
PROVIDERS: ADMIT Family Medicine; ATTEND Internal Medicine
PROC: 0JPT0XZ Removal of Tunneled Vascular Access Device from Trunk Subcutaneous Tissue and Fascia, Open Approach (ICD-10-PCS; principal; 2024-07-19)
PROC: 02HV33Z Insertion of Infusion Device into Superior Vena Cava, Percutaneous Approach (ICD-10-PCS; 2024-07-19)
PROC: 3E03329 Introduction of Other Anti-infective into Peripheral Vein, Percutaneous Approach (ICD-10-PCS; 2024-07-19)
DX: A41.01 Sepsis due to Methicillin susceptible Staphylococcus aureus (principal); K50.919 Crohn's disease, unspecified, with unspecified complications; F41.9 Anxiety disorder, unspecified; F32.A Depression, unspecified; D84.821 Immunodeficiency due to drugs; I10 Essential (primary) hypertension; H54.7 Unspecified visual loss; E86.0 Dehydration; G89.29 Other chronic pain; M54.9 Dorsalgia, unspecified; G62.9 Polyneuropathy, unspecified; D64.9 Anemia, unspecified; E53.8 Deficiency of other specified B group vitamins; E83.42 Hypomagnesemia; K90.829 Short bowel syndrome, unspecified; R74.8 Abnormal levels of other serum enzymes; Z88.2 Allergy status to sulfonamides; Z88.8 Allergy status to other drugs, medicaments and biological substances; Z93.2 Ileostomy status; Z90.49 Acquired absence of other specified parts of digestive tract; Z90.89 Acquired absence of other organs; Z98.890 Other specified postprocedural states; Z91.041 Radiographic dye allergy status; Z90.710 Acquired absence of both cervix and uterus; Z95.828 Presence of other vascular implants and grafts; Z79.899 Other long term (current) drug therapy
CPT/HCPCS: 0241U; 36415; 36569; 71045; 71045-26; 80053; 80202; 81001; 83605; 83690; 83735; 83880; 84100; 84145; 85025; 86140; 87040; 87070; 87075; 87077; 87154; 87186; 87205; 93306; 96361; 96365; 96366; 96372; 96375; 96376; 96523; 99284; 99285-25; A9270-GY; G0378; J0690; J0696; J1171; J1200; J1650; J2060; J2250; J2270; J2405; J2765; J3372; J3475; J3480; J3490; J7030; J7050

== ENCOUNTER 2024-09-02 06:03 | Emergency (ER) | payer BC ==
[2024-09-02] MEDS ORDERED: Sodium Chloride 0.9% 10 ML Syringe FLUSH PRN (06:45)
[2024-09-02] MEDS: HYDROmorphone 0.5 MG/0.5 ML Syringe IVPUSH ONE (06:54)
[2024-09-02] MEDS: Sodium Chloride 0.9% 1,000 ML IV SCH (06:54)
[2024-09-02 07:08] LABS: A/G RATIO 0.9 (1-2); ANION GAP 22.3 (5-15); BILIRUBIN TOTAL 1.6 mg/dL (0.2-1.0); BUN/CREATININE RATIO 18.3 (14-18); C-REACTIVE PROTEIN 0.59 mg/dL (<0.30); CALCIUM 11.4 mg/dL (8.5-10.1); CREATININE 1.8 mg/dL (0.55-1.02); EST CRCL DRUG DOSING (CG) 36.46 mL/min; MAGNESIUM 1.8 mg/dL (1.8-2.4); PROTEIN TOTAL,TP 10.5 g/dl (6.4-8.2)
[2024-09-02] MEDS: Ondansetron 4 MG/2 ML SDV IVPUSH ONE (07:11)
[2024-09-02 07:14] LABS: POTASSIUM,K 5.3 mEq/L (3.5-5.1)
[2024-09-02 07:15] LABS: BASOPHILS ABSOLUTE AUTO 0.1 K/mm3 (0.0-0.2); BASOPHILS PERCENT AUTO 0.8 % (0.0-1.0); EOSINOPHILS ABSOLUTE AUTO 0.4 K/mm3 (0.0-0.4); EOSINOPHILS PERCENT AUTO 3.3 % (0.0-6.0); HEMATOCRIT 58.2 % (37.0-47.0); HEMOGLOBIN 19.8 gm/dl (12.0-16.0); IMMATURE GRAN ABSOLUTE AUTO 0.04 K/mm3 (0.00-0.05); IMMATURE GRAN PERCENT AUTO 0.4 % (0.0-0.4); LACTIC ACID 2.1 mmol/L (0.4-2.0); LYMPHOCYTES ABSOLUTE AUTO 2.2 K/mm3 (1.0-4.8); LYMPHOCYTES PERCENT AUTO 20.4 % (24.0-44.0); MEAN CORPUSCULAR HEMOGLOBIN 28.3 pg (28.0-32.0); MEAN CORPUSCULAR VOLUME 83.3 fl (83.0-99.0); MONOCYTES ABSOLUTE AUTO 1.3 K/mm3 (0.0-0.8); NEUTROPHILS ABSOLUTE AUTO 6.7 K/mm3 (1.8-7.7); NEUTROPHILS PERCENT AUTO 63.1 % (41.0-71.0); PLATELET COUNT,PLT 368 K/mm3 (150-400); RED BLOOD CELL COUNT 6.99 M/mm3 (4.10-5.30); WHITE BLOOD CELL COUNT,WBC 10.63 K/mm3 (3.9-11.3)
[2024-09-02 07:39] LABS: CORONAVIRUS COVID-19 NAA NEGATIVE (NEGATIVE); INFLUENZA A NAA NEGATIVE (NEGATIVE); RESPIRATORY SYNCYTIAL VIR NAA NEGATIVE (NEGATIVE)
[2024-09-02] MEDS ORDERED: 50% Dextrose in Water 50 ML Syringe IVPUSH ONE (07:46)
[2024-09-02] MEDS ORDERED: Insulin Regular, Human 100 Units/ML 10 ML Vial IV ONE (07:47)
[2024-09-02 08:28] LABS: APPEARANCE,URINE SLT CLOUDY (Clear); BILIRUBIN,URINE 1+ (Negative); COLOR,URINE AMBER (Yellow); GLUCOSE,URINE NEGATIVE (Negative); KETONES,URINE NEGATIVE (Negative); LEUKOCYTE ESTERASE,URINE NEGATIVE (Negative); NITRITE,URINE NEGATIVE (Negative); OCCULT BLOOD,URINE 1+ (Negative); PH,URINE 5.5 (5.0-8.0); PROTEIN,URINE 3+ (Negative); UROBILINOGEN,URINE 0.2 (0.2-1.0)
[2024-09-02] MEDS: Sodium Chloride 0.9% 1,000 ML IV ONE (08:55)
[2024-09-02 09:20] LABS: BACTERIA,URINE MANY /hpf (FEW); CALCIUM OXALATE CRYSTALS,URINE OCCASIONAL; FINE GRANULAR CASTS,URINE 50-75 /lpf (0-5); HYALINE CASTS,URINE >100 /lpf (0-5); MUCUS,URINE MODERATE /hpf (FEW)
[2024-09-02 09:22] LABS: BROAD HYALINE CASTS,URINE 0-5 /hpf (0-5)
[2024-09-02 09:48] LABS: ANION GAP 18.7 (5-15); BUN/CREATININE RATIO 22.9 (14-18); CALCIUM 9.4 mg/dL (8.5-10.1); CREATININE 1.4 mg/dL (0.55-1.02); EST CRCL DRUG DOSING (CG) 46.88 mL/min; POTASSIUM,K 4.7 mEq/L (3.5-5.1)
[2024-09-02] MEDS: Ketorolac 15 MG/ML SDV IVPUSH ONE (12:54)
[2024-09-02 12:59] VITALS: BP 150/108; PULSE 88
== END 2024-09-02 13:02 | disposition home or self-care (01) ==
LOC: JD.ED 06:03
DX: E83.52 Hypercalcemia (principal); E86.0 Dehydration; R79.89 Other specified abnormal findings of blood chemistry; R74.8 Abnormal levels of other serum enzymes; I10 Essential (primary) hypertension; Z90.49 Acquired absence of other specified parts of digestive tract; Z90.710 Acquired absence of both cervix and uterus; Z79.899 Other long term (current) drug therapy; Z91.041 Radiographic dye allergy status; Z91.048 Other nonmedicinal substance allergy status; Z88.2 Allergy status to sulfonamides
CPT/HCPCS: 0241U; 36415; 71045; 80048; 80053; 81001; 83605; 83690; 83735; 85025; 86140; 87040; 93005; 96361; 96374; 96375; 99284; J1171; J1815; J1885; J2405; J7030